=== PATIENT | female | born 1945 | race Caucasian/White ===

== ENCOUNTER → 2017-11-21 | Outpatient (CLI) | payer MEDICARE ==
--- NOTE | 2017-11-22 08:38 | RADIOLOGY REPORT (SQ) ---
EXAM DESCRIPTION: PET CT SKULL/THIGH COMPLETED DATE/TIME: 11/21/2017 8:54 pm REASON FOR STUDY: MALIGNANT NEOPLASM OF ENDOMETRIUM C54.1 MALIGNANT NEOPLASM OF ENDOMETRIUM COMPARISON: Report only, outside CT chest abdomen pelvis 10/16/2014 RADIONUCLIDE AND DOSE: 14.5 mCi F18 FDG The route of agent administration: Intravenous FASTING BLOOD SUGAR: 141 mg/dl CONTRAST TYPE AND DOSE: No CT contrast given. TECHNIQUE: Blood glucose level was verified. Above dose of FDG was injected intravenously. 2-D seg mented attenuation correction images were obtained from the base of the skull to the midthighs. Nonc ontrast CT images were obtained for attenuation correction and fusion with emission images. CT image s were performed without oral or intravenous contrast and are not sensitive for parenchymal lesions. A series of overlapping emission PET images were obtained. Images reviewed and manipulated at [facility] work station by the radiologist. Images stored on PACS. LIMITATIONS: None. FINDINGS: HEAD AND NECK: No areas of abnormal metabolic activity in the soft tissues of the head and neck. CHEST: A 1.7 x 1 cm pretracheal lymph node is present on axial image 63, with SUV of 3.1. A right paratracheal 1.7 x 1.2 cm lymph node is present on axial image 68, with SUV of 3.1. There is a benign-appearing cyst in the medial anterior right chest, just deep to the right anterior 3rd rib. This is non metabolic with SUV of less than 0.5. ABDOMEN AND PELVIS: Several hypermetabolic liver lesions are present as follows: 1.5 cm left lobe liver subdiaphragmatic surface axial image 107, SUV 5.3. 1 cm anterior left lobe liver axial image 132, SUV 4.9 2.2 x 1.5 cm right lobe liver lesion axial image 126, SUV 6.5 PROXIMAL LOWER EXTREMITIES: No areas of abnormal metabolic activity in the soft tissues of the lower extremities. BONES: No abnormal metabolic activity in the visualized skeleton. ADDITIONAL CT FINDINGS: Contracted gallbladder with tiny stones. Mild spotty coronary artery calcifi cation OTHER: Liver background activity 2.5 SUV. Blood pool background activity 1.7 SUV IMPRESSION: Metabolically active mediastinal lymph nodes worrisome for metastatic disease. Hypermetabolic liver lesions due to metastatic disease TECHNICAL DOCUMENTATION: JOB ID: [id number]- All Rights Reserved Reading location - IP/workstation name: [email or web address]
== END ==
LOC: RAD 18:11
PROVIDERS: ATTEND Internal Medicine
DX: C54.3 Malignant neoplasm of fundus uteri (principal)
CPT/HCPCS: 78815; A9552

== ENCOUNTER 2017-11-30 07:31 | Day surgery (SDC) | payer MEDICARE ==
[2017-11-29 11:17] LABS: HEMATOCRIT 38.3 % (36.0-47.0); HEMOGLOBIN 12.8 g/dL (12.0-15.5); MEAN CORPUSCULAR HEMOGLOBIN 29.4 pg (27.0-33.4); MEAN CORPUSCULAR HGB CONC 33.5 g/dL (32.0-36.0); MEAN CORPUSCULAR VOLUME 88 fl (80-97); PLATELET COUNT 330 10^3/uL (150-450); RED BLOOD COUNT 4.36 10^6/uL (3.72-5.28); RED CELL DISTRIBUTION WIDTH 13.6 % (11.5-14.0); WHITE BLOOD COUNT 10.1 10^3/uL (4.0-10.5)
[2017-11-29 11:47] LABS: ANION GAP 15 (5-19); BLOOD UREA NITROGEN 33 mg/dL (7-20); CALCIUM 10.2 mg/dL (8.4-10.2); CARBON DIOXIDE 29 mmol/L (22-30); CHLORIDE 100 mmol/L (98-107); GLUCOSE 187 mg/dL (75-110); POTASSIUM 4.6 mmol/L (3.6-5.0); SODIUM 144.3 mmol/L (137-145)
--- NOTE | 2017-11-29 12:34 | RADIOLOGY REPORT (SQ) ---
EXAM DESCRIPTION: CHEST PA/LATERAL COMPLETED DATE/TIME: 11/29/2017 11:22 am REASON FOR STUDY: PRE OP COMPARISON: None. Correlation: PET-CT 11/21/2017. EXAM PARAMETERS: NUMBER OF VIEWS: two views TECHNIQUE: Digital Frontal and Lateral radiographic views of the chest acquired. RADIATION DOSE: NA LIMITATIONS: none FINDINGS: LUNGS AND PLEURA: No opacities, masses or pneumothorax. No pleural effusion. MEDIASTINUM AND HILAR STRUCTURES: Known mediastinal adenopathy. HEART AND VASCULAR STRUCTURES: Heart normal size. No evidence for failure. BONES: No acute findings. HARDWARE: None in the chest. OTHER: No other significant finding. IMPRESSION: Known mediastinal adenopathy. No significant change. TECHNICAL DOCUMENTATION: JOB ID: [id number] [employer]- All Rights Reserved Reading location - IP/workstation name: [email or web address]
--- NOTE | 2017-11-29 13:19 | EKG REPORT ---
SEVERITY:- NORMAL ECG - SINUS RHYTHM : Confirmed by: Michael Carrizales MD 29-Nov-2017 13:17:47
[~2017-11-30 07:31] MED LIST: CEFAZOLIN 1 GM/D5W RTU 1 GM/50 ML RTUPB IV PRN; DIAZEPAM 5 MG TABLET PO PRN; LACTATED RINGERS 1000 ML IV PRN; LIDOCAINE 0.5% INJ-PF (5 MG/ML) 50 ML SDV SUBCUT PRN
[2017-11-30] MEDS ORDERED: BACITRACIN INJ 50,000 UNIT VIAL ONE (07:56)
[2017-11-30] MEDS ORDERED: LIDOCAINE 0.5% INJ-PF (5 MG/ML) 50 ML SDV ONE (07:56)
[2017-11-30] MEDS ORDERED: FENTANYL CITRATE INJ/PF 100 MCG/2 ML AMPUL ONE (08:02)
[2017-11-30] MEDS ORDERED: MIDAZOLAM 2 MG/2 ML INJ ONE (08:02)
--- NOTE | 2017-11-30 10:49 | RADIOLOGY REPORT (SQ) ---
EXAM DESCRIPTION: PORTACATH INSERTION; GUIDANCE FLUOROSCOPIC COMPLETED DATE/TIME: 11/30/2017 9:16 am REASON FOR STUDY: C54.3 MALIGNANT NEOPLASM OF FUNDUS UTERI C54.3 MALIGNANT NEOPLASM OF FUNDUS UTERI COMPARISON: Two-view chest 11/29/2017 FLUOROSCOPY TIME: 0.1 minutes 17 series of digital images saved to PACS. TECHNIQUE: Intra-operative images acquired during surgical procedure to evaluate progress. NUMBER OF IMAGES: 17 series of digital images saved to pac's LIMITATIONS: None. FINDINGS: Intra procedural imaging and fluoro during placement of a right-sided permanent central li ne with the tip in the superior vena cava. Please see the operative report for further details IMPRESSION: Intra procedural imaging and fluoro COMMENT: Quality ID [id number]: Final reports for procedures using fluoroscopy that document radiation exp osure indices, or exposure time and number of fluorographic images (if radiation exposure indices are not available) Please consult full operative report of the attending physician for description of the procedure. TECHNICAL DOCUMENTATION: JOB ID: [id number] [email or web address]- All Rights Reserved Reading location - IP/workstation name: [facility]-[email or web address]
--- NOTE | 2017-11-30 10:49 | RADIOLOGY REPORT (SQ) ---
EXAM DESCRIPTION: PORTACATH INSERTION; GUIDANCE FLUOROSCOPIC COMPLETED DATE/TIME: 11/30/2017 9:16 am REASON FOR STUDY: C54.3 MALIGNANT NEOPLASM OF FUNDUS UTERI C54.3 MALIGNANT NEOPLASM OF FUNDUS UTERI COMPARISON: Two-view chest 11/29/2017 FLUOROSCOPY TIME: 0.1 minutes 17 series of digital images saved to PACS. TECHNIQUE: Intra-operative images acquired during surgical procedure to evaluate progress. NUMBER OF IMAGES: 17 series of digital images saved to pac's LIMITATIONS: None. FINDINGS: Intra procedural imaging and fluoro during placement of a right-sided permanent central li ne with the tip in the superior vena cava. Please see the operative report for further details IMPRESSION: Intra procedural imaging and fluoro COMMENT: Quality ID [id number]: Final reports for procedures using fluoroscopy that document radiation exp osure indices, or exposure time and number of fluorographic images (if radiation exposure indices are not available) Please consult full operative report of the attending physician for description of the procedure. TECHNICAL DOCUMENTATION: JOB ID: [id number] [employer]- All Rights Reserved Reading location - IP/workstation name: [facility]-[email or web address]
[2017-11-30 11:08] VITALS: BP 122/73
--- NOTE | 2017-11-30 11:32 | Discharge Summary ---
Discharge Summary (SDC) - Discharge Final Diagnosis: Uterine cancer. Date of Surgery: 11/30/17 Discharge Date: 11/30/17 Condition: Fair Forms: Sedation D/C Instructions, Discharge POC-Surgical Service Treatment or Instructions: Return to physician as directed by MD. Discharge home [after recovery per ASU criteria]. Diet ,as tolerated, when fully awake advance as tolerated. Activities within moderation encouraged. Follow up in my office by appointment in about [1 week]. Call for appointment. Leave wounds [covered], [keep clean and dry, until office visit in 1 week]. Hold of on school/work [until evaluation in office]. Meds per med rec. Percocet prescription. May shower [in 48 hrs], [try to keep operated area as dry as possible]. Referrals: KHAI KILPATRICK MD [ACTIVE STAFF] - 12/09/17 10:45 am Discharge Diet: As Tolerated Respiratory Treatments at Home: Deep Breathing/Coughing Discharge Activity: Activity As Tolerated Home Care Assistance: None Needed Report the Following to Your Physician Immediately: Shortness of Breath, Nausea , Vomiting, Increase in Pain, Fever over 101 Degrees, Unusual Bleeding, Redness , Swelling, Warmth
--- NOTE | 2017-11-30 11:34 | Operative Report ---
Operative Report DATE OF SURGERY: 11/30/17 PREOPERATIVE DIAGNOSIS: Uterine cancer. POSTOPERATIVE DIAGNOSIS: Uterine cancer. OPERATION: 1. Ultrasound evaluation of the right internal jugular vein. 2. Port-A-Cath insertion via real-time access is right renal vein. 3. Angiogram and interpretation. SURGEON: KHAI NGUYEN WATER QUALITY MANAGER: None. ANESTHESIA: Moderate Sedation TISSUE REMOVED OR ALTERED: Not applicable., COMPLICATIONS: None. ESTIMATED BLOOD LOSS: 5 mL. INTRAOPERATIVE FINDINGS: Of a satisfactory right internal jugular vein about 1.5 cm in diameter. Satisfactory and safe axis via ultrasound guidance. Satisfactory placement of port. Angiogram demonstrated smooth flow of contrast through the right atrium and ventricle. Easy egress of blood and ingress of heparinized. PROCEDURE: After obtaining informed consent, the patient was taken to the [facility] and positioned supine. The [right] neck and chest were prepared with chlorhexidine and draped out with sterile linen. After the " universal timeout", in which it was verified that the patient continued to receive antibiotic, the procedure commenced. A steriley sheathed ultrasound probe was used to evaluate the [ right] internal jugular vein. Local anesthesia was infiltrated adjacent to the probe. Access into the [right] internal jugular vein was obtained using a micropuncture needle, followed by micropuncture wire and then a micropuncture catheter. This was followed by introduction of a 0.035 guidewire the tip of which was placed down into the inferior vena cava . The port sites was marked , locally anesthetized and incision made. Dissection now proceeded to the deep subcutaneous subcutaneous tissues so that a pocket for the port was made. Meticulous hemostasis was secured and the catheter was tunneled between the 2 incisions. Proximally, the catheter was now positioned using a peel-away sheath. Distally the catheter was tailored to an appropriate length and then mated to the port using the contained fixating device. The port was now placed in the pocket and the catheter optimally positioned. The port was accessed with a Vazquez needle and an angiogram done under digital subtraction. The findings as dictated. With adequate and satisfactory positioning, both lumens of the chamber were irrigated with heparinized solution. The wounds were now closed using interrupted 3-0 PDS to the subcutaneous tissues and a continuous subcuticular suture of 4-0 Monocryl to the skin. These are reinforced with Steri-Strips over benzoin and then dressings applied. Time: 0.1 minute. Dose: 16.44 m Gy Contrast: 7 mls. Isovue 300. Copies of the dictated operative report for Dr. Khai Amos MD.
== END 2017-11-30 11:00 | disposition home or self-care (01) ==
LOC: CCL 07:31
PROVIDERS: ATTEND Surgery
PROC: 05HM33Z Insertion of Infusion Device into Right Internal Jugular Vein, Percutaneous Approach (ICD-10-PCS; principal; 2017-11-30)
DX: C54.3 Malignant neoplasm of fundus uteri (principal); E11.9 Type 2 diabetes mellitus without complications; Z96.652 Presence of left artificial knee joint; Z85.118 Personal history of other malignant neoplasm of bronchus and lung; Z79.899 Other long term (current) drug therapy; Z79.82 Long term (current) use of aspirin; Z79.84 Long term (current) use of oral hypoglycemic drugs; Z87.891 Personal history of nicotine dependence
CPT/HCPCS: 93005; 36415; 82962; 85027; 80048; 36561; 76937; 77001; 71046; 93010; C1752; Q9967; J2250; J3490 ×2; J0690; A9270; J3010; J1644

== ENCOUNTER → 2018-02-04 | Outpatient (CLI) | payer MEDICARE ==
--- NOTE | 2018-02-04 10:35 | RADIOLOGY REPORT (SQ) ---
EXAM DESCRIPTION: CT CHEST WITH; CT ABD/PELVIS WITH IV ONLY COMPLETED DATE/TIME: 02/04/2018 9:40 am REASON FOR STUDY: MALIGNANT NEOPLASM OF FUNDUS UTERI C54.3 MALIGNANT NEOPLASM OF FUNDUS UTERI COMPARISON: PET-CT 11/21/2017 CONTRAST TYPE AND DOSE: contrast/concentration: Isovue 370.00 mg/ml; Total Contrast Delivered: 80.0 ml; Total Saline Delivered: 69.0 ml RENAL FUNCTION: Creatinine 1.09 TECHNIQUE: CT scan of the chest performed using helical scanning technique with dynamic intravenous contrast injection. Images reviewed with lung, soft tissue and bone windows. Reconstructed coronal a nd sagittal MPR images reviewed. All images stored on PACS. CT scan of the abdomen and pelvis performed with intravenous and without oral contrastusing helical s tiffanie technique with dynamic intravenous contrast injection. Images reviewed with lung, soft tissu e and bone windows. Reconstructed coronal and sagittal MPR images reviewed. Delayed images for eval uation of the urinary system also acquired and evaluated. All images stored on PACS. All CT scanners at this facility use dose modulation, iterative reconstruction, and/or weight based d osing when appropriate to reduce radiation dose to as low as reasonably achievable (ALARA). [facility]: Dose Right [facility]: CareDose [facility]: Dose Right [facility]: Teradose 4D [facility]: Smart Technologies RADIATION DOSE: CT Rad equipment meets quality standard of care and radiation dose reduction techniq ues were employed. CTDIvol: 5.7 - 7.9 mGy. DLP: 1046 mGy-cm. . LIMITATIONS: None. FINDINGS: CHEST: LUNGS AND PLEURA: Post right upper lobectomy. No acute infiltrates. No pleural effusion. No pneumo thorax. Airways are patent. HILAR AND MEDIASTINAL STRUCTURES: No abnormal lymph nodes. 1 x 0.6 cm right peritracheal lymph node is smaller than on previous studies (was 1.7 x 1 cm 11/21/2017). 1.3 x 0.5 cm pretracheal lymph node is present (was 1.7 x 1.2 cm on 11/21/2017). There is a 5 x 4 cm mediastinal cyst unchanged from 11/21. This was non metabolic on PET-CT 11/21/2017. HEART AND VASCULAR STRUCTURES: No aneurysm or dissection. No central pulmonary emboli. No pericardi al effusion. Coronary artery calcifications and coronary artery stents are present. HARDWARE: None. THYROID AND OTHER SOFT TISSUES: No masses. No adenopathy. BONES: No significant finding. OTHER: No other significant finding. ABDOMEN AND PELVIS: LIVER: The anterior left lobe liver lesions seen on PET-CT 11/21/2017 is no longer identified. There is a 7 mm scar in the anterior left lobe liver axial image 18 (1.2 cm hypermetabolic nodule was present on 11/21/2017 in this location). 2.1 x 1.5 cm inferior right lobe liver lesion is present (was 2.3 x 1.5 cm PET-CT 11/21/2017). SPLEEN: Normal size. No focal lesions. PANCREAS: No masses. No significant calcifications. No adjacent inflammation or peripancreatic fluid collections. Pancreatic duct not dilated. GALLBLADDER: Small stones in a contracted gallbladder. No pericholecystic fluid ADRENAL GLANDS: No significant masses or asymmetry. RIGHT KIDNEY AND URETER: No solid masses. No significant calcification. No hydronephrosis or hydroure ter. LEFT KIDNEY AND URETER: No solid masses. No significant calcification. No hydronephrosis or hydrouret er. AORTA AND VESSELS: No aneurysm. No dissection. Renal arteries, SMA, celiac without stenosis. RETROPERITONEUM: No retroperitoneal adenopathy, hemorrhage or masses. BOWEL AND PERITONEAL CAVITY: No oral contrast. No evidence of bowel obstruction or free intraperiton eal air or fluid. APPENDIX: Normal. ABDOMINAL WALL: No masses. No hernias. PELVIS: No mass or free fluid. Normal bladder. Post hysterectomy BONES: No significant or acute findings. OTHER: No other significant finding. IMPRESSION: NORMAL CT OF THE CHEST WITH IV CONTRAST. NORMAL CT OF THE ABDOMEN AND PELVIS WITH ORAL AND INTRAVENOUS CONTRAST. COMMENT: Post right upper lobectomy. No CT findings for local recurrence of right upper lobe tumor . 5 x 4 cm benign-appearing anterior mediastinal cyst unchanged. Decrease in size of liver lesions compared to PET-CT 11/21/2017 Contracted gallbladder with tiny stones TECHNICAL DOCUMENTATION: JOB ID: [id number] Quality ID # [id number]: Final reports with documentation of one or more dose reduction techniques (e.g., Au tomated exposure control, adjustment of the mA and/or kV according to patient size, use of iterative reconstruction technique) 2010 [employer]- All Rights Reserved Reading location - IP/workstation name: [facility]
== END ==
LOC: RAD 08:45
PROVIDERS: ATTEND Physician Assistant Medical
DX: C54.3 Malignant neoplasm of fundus uteri (principal); I25.10 Atherosclerotic heart disease of native coronary artery without angina pectoris
CPT/HCPCS: 71260; 74177

== ENCOUNTER 2018-02-05 13:46 | Emergency (ER) | payer MEDICARE ==
[2018-02-05] MEDS ORDERED: NORMAL SALINE 1000 ML 1,000 ML IV ONE (14:09)
--- NOTE | 2018-02-05 14:09 | ER Document Report ---
ED Medical Screen (RME) - General Chief Complaint: Abdominal Pain Stated Complaint: ABDOMINAL PAIN, BACK PAIN Time Seen by Provider: 02/05/18 14:03 Notes: 72 year old female that presents to the emergency department today with complaints of constipation. Patient is on narcotic pain medication secondary to stage IV endometrial cancer. Patient states she has not had a bowel movement in 2 weeks. Review of patient's outpatient abdominal CT that was done here yesterday shows a large stool burden in the rectal vault. I have greeted and performed a rapid initial assessment of this patient. A comprehensive ED assessment and evaluation of the patient, analysis of test results, and completion of the medical decision making process will be conducted by additional ED providers. Review of systems: Positive for rectal pain and constipation. Physical Exam: General: Alert, appears chronically ill. HEENT: Normocephalic. Atraumatic. PERRLA. Extraocular movements intact. Oropharynx clear. Neck: Supple. Respiratory: No respiratory distress. Abdominal: Minimal tenderness. No distension. Extremities: Moves all four extremities. Neurological: Normal cognition. AAOx4. Normal speech. Psychological: Normal affect. Normal Mood. Skin: Warm. Dry. Normal color. TRAVEL OUTSIDE OF THE [place] IN LAST 30 DAYS: No - Related Data Allergies/Adverse Reactions: No Known Allergies Allergy (Verified 02/05/18 14:07) Past Medical History - Social History Chew tobacco use (# tins/day): Yes Frequency of alcohol use: None Drug Abuse: None - Past Medical History Cardiac Medical History: Reports: Hx Hypertension Denies: Hx Coronary Artery Disease, Hx Heart Attack Pulmonary Medical History: Denies: Hx Asthma, Hx Bronchitis, Hx COPD, Hx Pneumonia Neurological Medical History: Denies: Hx Cerebrovascular Accident, Hx Seizures Renal/ Medical History: Denies: Hx Peritoneal Dialysis Musculoskeltal Medical History: Reports Hx Arthritis - right knee Past Surgical History: Reports: Hx Hysterectomy - Immunizations Hx Diphtheria, Pertussis, Tetanus Vaccination: No History of Influenza Vaccine for 05/2017 - 10/2017 Season: Yes Influenza Administration Date for 05/2017 - 10/2017 Season: 05/09/17 Physical Exam - Vital signs Vitals: Temp Pulse Resp BP Pulse Ox 97.9 F 101 H 24 H 109/63 100 02/05/18 13:56 02/05/18 13:56 02/05/18 13:56 02/05/18 13:56 02/05/18 13:56 Course - Vital Signs Vital signs: Temp Pulse Resp BP Pulse Ox 97.9 F 101 H 24 H 109/63 100 02/05/18 13:56 02/05/18 13:56 02/05/18 13:56 02/05/18 13:56 02/05/18 13:56 Doctor's Discharge - Discharge Referrals: HONEY WILLIAMSON, PAWilfredoC [Primary Care Provider] - Follow up as needed
--- NOTE | 2018-02-05 14:38 | ER Document Report ---
ED General - General Chief Complaint: Abdominal Pain Stated Complaint: ABDOMINAL PAIN, BACK PAIN Time Seen by Provider: 02/05/18 14:03 Mode of Arrival: Ambulatory Information source: Patient Notes: 72-year-old female presents emergency department with complaints of constipation that started 2 days ago. Patient states that she has stage IV endometrial cancer. She is currently on narcotic pain medication. Patient states that she has not had any narcotic pain medication in the last 2 weeks. She states that she only takes a narcotic pain medication after she finishes with her chemotherapy. Her next dose of chemotherapy is next week. Patient contacted her oncologist yesterday. She states that she had a CT of the chest, abdomen, pelvis ordered. I reviewed the CT. No fecal impaction noted. Patient says she has a lot of pressure to her buttock. Patient denies abdominal pain, nausea, vomiting, dysuria, hematuria, melena, hematochezia. TRAVEL OUTSIDE OF THE [place] IN LAST 30 DAYS: No - HPI Onset: Last week Onset/Duration: Sudden Quality of pain: Achy, Fullness, Pressure Severity: Moderate Associated symptoms: None Exacerbated by: Denies Relieved by: Denies Similar symptoms previously: No Recently seen / treated by doctor: No - Related Data Allergies/Adverse Reactions: No Known Allergies Allergy (Verified 02/05/18 14:07) Past Medical History - General Information source: Patient - Social History Smoking Status: Never Smoker Chew tobacco use (# tins/day): Yes Frequency of alcohol use: None Drug Abuse: None Family History: Reviewed & Not Pertinent Patient has suicidal ideation: No Patient has homicidal ideation: No - Past Medical History Cardiac Medical History: Reports: Hx Hypertension Denies: Hx Coronary Artery Disease, Hx Heart Attack Pulmonary Medical History: Denies: Hx Asthma, Hx Bronchitis, Hx COPD, Hx Pneumonia Neurological Medical History: Denies: Hx Cerebrovascular Accident, Hx Seizures Renal/ Medical History: Denies: Hx Peritoneal Dialysis Musculoskeltal Medical History: Reports Hx Arthritis - right knee Past Surgical History: Reports: Hx Hysterectomy - Immunizations Hx Diphtheria, Pertussis, Tetanus Vaccination: No Hx Pneumococcal Vaccination: 08/09/14 Review of Systems - Review of Systems Constitutional: No symptoms reported EENT: No symptoms reported Cardiovascular: No symptoms reported Respiratory: No symptoms reported Gastrointestinal: Constipation Genitourinary: No symptoms reported Female Genitourinary: No symptoms reported Musculoskeletal: No symptoms reported Skin: No symptoms reported Neurological/Psychological: No symptoms reported -: Yes All other systems reviewed and negative Physical Exam - Vital signs Vitals: Temp Pulse Resp BP Pulse Ox 97.9 F 101 H 24 H 109/63 100 02/05/18 13:56 02/05/18 13:56 02/05/18 13:56 02/05/18 13:56 02/05/18 13:56 Interpretation: Tachycardic - Notes Notes: PHYSICAL EXAMINATION: GENERAL: Well-appearing, well-nourished and in no acute distress. HEAD: Atraumatic, normocephalic. EYES: Pupils equal round and reactive to light, extraocular movements intact, conjunctiva are normal. ENT: Nares patent, oropharynx clear without exudates. Moist mucous membranes. NECK: Normal range of motion, supple without lymphadenopathy LUNGS: Breath sounds clear to auscultation bilaterally and equal. No wheezes rales or rhonchi. HEART: Regular rate and rhythm without murmurs ABDOMEN: Soft, nontender, nondistended abdomen. No guarding, no rebound. No masses appreciated. Female : deferred Musculoskeletal: Normal range of motion, no pitting or edema. No cyanosis. NEUROLOGICAL: Cranial nerves grossly intact. Normal speech, normal gait. Normal sensory, motor exams PSYCH: Normal mood, normal affect. SKIN: Warm, Dry, normal turgor, no rashes or lesions noted. Course - Re-evaluation Re-evalutation: 02/05/18 19:38 No free air or signs of obstruction on XR. Patient given a soap suds enema without relief. Patient was then manually disimpacted. Moderate stool removed. I will discharge the patient home. Patient instructed to take over the counter medications as needed for constipation, to follow up with her PCP as directed, and to return for worsening symptoms. Patient is agreeable with the plan of care. - Vital Signs Vital signs: Temp Pulse Resp BP Pulse Ox 97.9 F 101 H 15 143/76 H 100 02/05/18 13:56 02/05/18 13:56 02/05/18 15:01 02/05/18 15:01 02/05/18 15:01 - Laboratory Result Diagrams: 02/05/18 14:50 02/05/18 14:50 Laboratory results interpreted by me: 02/05/18 02/05/18 02/05/18 14:50 14:50 17:37 RBC 3.38 L Hgb 10.5 L Hct 30.1 L RDW 16.0 H BUN 24 H Creatinine 1.29 H Est GFR ( Amer) 49 L Est GFR (Non-Af Amer) 41 L Glucose 241 H Total Protein 6.2 L Urine Glucose (UA) >=500 H Discharge - Discharge Clinical Impression: Constipation Qualifiers: Constipation type: unspecified constipation type Qualified Code(s): K59.00 - Constipation, unspecified Condition: Good Disposition: HOME, SELF-CARE Instructions: Constipation ([facility]) Referrals: HONEY WILLIAMSON PA-C [Primary Care Provider] - Follow up as needed
[2018-02-05 15:09] LABS: ABSOLUTE LYMPHOCYTES (AUTO) 1.6 10^3/uL (0.5-4.7); ABSOLUTE MONOCYTES (AUTO) 0.9 10^3/uL (0.1-1.4); ABSOLUTE NEUT (AUTO) 7.5 10^3/uL (1.7-8.2); BASOPHILS % (AUTO) 0.3 % (0-2); EOSINOPHILS % (AUTO) 0.2 % (0-6); HEMATOCRIT 30.1 % (36.0-47.0); HEMOGLOBIN 10.5 g/dL (12.0-15.5); LYMPHOCYTES % (AUTO) 16.4 % (13-45); MEAN CORPUSCULAR HEMOGLOBIN 31.2 pg (27.0-33.4); MEAN CORPUSCULAR VOLUME 89 fl (80-97); PLATELET COUNT 273 10^3/uL (150-450); RED BLOOD COUNT 3.38 10^6/uL (3.72-5.28); SEGMENTED NEUTROPHILS % (AUTO) 74.1 % (42-78); TOTAL CELLS COUNTED % (AUTO) 100 %; WHITE BLOOD COUNT 10.1 10^3/uL (4.0-10.5)
[2018-02-05 15:25] LABS: ALANINE AMINOTRANSFERASE 22 U/L (9-52); ALBUMIN 3.6 g/dL (3.5-5.0); ALKALINE PHOSPHATASE 74 U/L (38-126); ANION GAP 13 (5-19); ASPARTATE AMINO TRANSFERASE 16 U/L (14-36); BILIRUBIN,DIRECT 0.4 mg/dL (0.0-0.4); BILIRUBIN,TOTAL 0.7 mg/dL (0.2-1.3); BLOOD UREA NITROGEN 24 mg/dL (7-20); CALCIUM 9.8 mg/dL (8.4-10.2); CARBON DIOXIDE 26 mmol/L (22-30); CHLORIDE 103 mmol/L (98-107); GLUCOSE 241 mg/dL (75-110); POTASSIUM 4.1 mmol/L (3.6-5.0); SODIUM 141.6 mmol/L (137-145); TOTAL PROTEIN 6.2 g/dL (6.3-8.2)
--- NOTE | 2018-02-05 15:48 | RADIOLOGY REPORT (SQ) ---
EXAM DESCRIPTION: ACUTE ABDOMEN SERIES COMPLETED DATE/TIME: 02/05/2018 3:36 pm REASON FOR STUDY: abdominal pain COMPARISON: 11/21/2017 patent NUMBER OF VIEWS: Three views. TECHNIQUE: Frontal chest, supine abdomen and upright/decubitus abdomen radiographic images acquired. LIMITATIONS: None. FINDINGS: CHEST: Right hilar prominence. Venous access catheter tip at the cavoatrial junction. FREE AIR: None. No abnormal gas collections. BOWEL GAS PATTERN: Few scattered small bowel loops without air-fluid levels. CALCIFICATIONS: No suspicious calcifications. HARDWARE: None in the abdomen. SOFT TISSUES: Contrast in the bladder. BONES: No acute fracture. No worrisome bone lesions. OTHER: No other significant finding. IMPRESSION: No evidence for bowel obstruction. Right hilar prominence. TECHNICAL DOCUMENTATION: JOB ID: [id number] [employer]- All Rights Reserved Reading location - IP/workstation name: [email or web address]
[2018-02-05] MEDS ORDERED: LORAZEPAM INJ 2 MG/1 ML VIAL IV ONE (17:06)
[2018-02-05] MEDS ORDERED: LORAZEPAM INJ 2 MG/1 ML VIAL ONE (17:08)
[2018-02-05 17:58] LABS: APPEARANCE,URINE CLEAR; BILIRUBIN,URINE NEGATIVE (NEGATIVE); COLOR,URINE YELLOW; GLUCOSE, URINE >=500 mg/dL (NEGATIVE); KETONES,URINE NEGATIVE (NEGATIVE); LEUKOCYTE ESTERASE,URINE NEGATIVE (NEGATIVE); NITRITE,URINE NEGATIVE (NEGATIVE); PROTEIN,URINE NEGATIVE (NEGATIVE); URINE SPECIFIC GRAVITY 1.022; UROBILINOGEN,URINE NEGATIVE mg/dL (<2.0)
[2018-02-05 20:07] VITALS: BP 138/67
[2018-02-05] MEDS ORDERED: NORMAL SALINE 10 ML SDV (SCHEDULED) IV ONE (20:45)
== END 2018-02-05 20:51 | disposition home or self-care (01) ==
LOC: ER 13:46
DX: K59.00 Constipation, unspecified (principal); C54.1 Malignant neoplasm of endometrium; Z79.899 Other long term (current) drug therapy; I10 Essential (primary) hypertension; Z72.0 Tobacco use; R00.0 Tachycardia, unspecified
CPT/HCPCS: 99284; 96361; 96374; 36415; 85025; 80053; 81001; 74022; J2060; J7030

== ENCOUNTER 2018-02-25 14:21 | Inpatient (IN) | payer MEDICARE ==
[2018-02-25] MEDS ORDERED: PIPERACILLIN/TAZOBACTAM 4.5 GM VIAL IV ONE (14:37)
[2018-02-25] MEDS ORDERED: RINGERS SOLUTION,LACTATED 1,000 ML IV ONE (14:38)
--- NOTE | 2018-02-25 14:44 | ER Document Report ---
ED General - General Stated Complaint: WEAKNESS Time Seen by Provider: 02/25/18 14:30 TRAVEL OUTSIDE OF THE [place] IN LAST 30 DAYS: No - HPI Notes: 72-year-old female with uterine cancer currently receiving chemotherapy, presents with generalized weakness and diarrhea for the past 2 days. Unable to report how many episodes of diarrhea daily. No blood. Denies history of C. difficile. Denies recent antibiotics. Last chemotherapy 5 days ago. Had appointment with primary care doctor today for IV fluids, but was too weak to get out of the car. Denies fevers or chills. Denies pain with urination. Has nausea without vomiting. No abdominal pain. Denies recent changes in medications. EMS found patient to have blood pressure of 70/40 and heart rate of 100. Blood pressure improved to 121/77 with fluids. - Related Data Allergies/Adverse Reactions: No Known Allergies Allergy (Verified 02/25/18 18:59) Past Medical History - Social History Smoking Status: Unknown if Ever Smoked Family History: Reviewed & Not Pertinent - Past Medical History Cardiac Medical History: Reports: Hx Hypertension Denies: Hx Coronary Artery Disease, Hx Heart Attack Pulmonary Medical History: Denies: Hx Asthma, Hx Bronchitis, Hx COPD, Hx Pneumonia Neurological Medical History: Denies: Hx Cerebrovascular Accident, Hx Seizures Endocrine Medical History: Reports: Hx Diabetes Mellitus Type 2 Renal/ Medical History: Denies: Hx Peritoneal Dialysis Malignancy Medical History: Reports: Other - uterine cancer Musculoskeletal Medical History: Reports Hx Arthritis - right knee Past Surgical History: Reports: Hx Hysterectomy - Immunizations Hx Diphtheria, Pertussis, Tetanus Vaccination: No Hx Pneumococcal Vaccination: 08/09/14 Review of Systems - Review of Systems Notes: REVIEW OF SYSTEMS: CONSTITUTIONAL: -fevers, -chills, +fatigue EENT: -eye pain, -difficulty swallowing, -nasal congestion CARDIOVASCULAR: -chest pain, -syncope. RESPIRATORY: -cough, -SOB GASTROINTESTINAL: -abdominal pain, +nausea, -vomiting, +diarrhea GENITOURINARY: -dysuria, -hematuria MUSCULOSKELETAL: -back pain, -neck pain SKIN: -rash or skin lesions. HEMATOLOGIC: -easy bruising or bleeding. LYMPHATIC: -swollen, enlarged glands. NEUROLOGICAL: -altered mental status or loss of consciousness, -headache, - neurologic symptoms PSYCHIATRIC: -anxiety, -depression. Physical Exam - Vital signs Vitals: Resp 16 02/25/18 14:32 Interpretation: Hypotensive, Tachycardic - Notes Notes: PHYSICAL EXAMINATION: GENERAL: Ill-appearing, well-nourished and in no acute distress. HEAD: Atraumatic, normocephalic. EYES: Pupils equal round and reactive to light, extraocular movements intact, conjunctiva are normal. ENT: nares patent, oropharynx clear without exudates. Dry mucous membranes. NECK: Normal range of motion, supple without lymphadenopathy LUNGS: Breath sounds clear to auscultation bilaterally and equal. No wheezes rales or rhonchi. HEART: Regular rate and rhythm, no chest wall tenderness ABDOMEN: Soft, nontender, normoactive bowel sounds. No guarding, no rebound. No masses appreciated. EXTREMITIES: Normal range of motion, no pitting or edema. No cyanosis. NEUROLOGICAL: Cranial nerves grossly intact. Normal speech, normal gait. Normal sensory and motor exams. PSYCH: Normal mood, normal affect. SKIN: Warm, Dry, normal turgor, no rashes or lesions noted, pale. Course - Re-evaluation Re-evalutation: 02/25/18 14:44 Initially hypotensive and tachycardic. Sepsis suspected. No fever. C. difficile and stool cultures ordered. Fluids and antibiotics initiated. 02/25/18 20:11 Blood pressure had stabilized around 90s-100 systolic, then dropped into the 70s. Patient states "it is always like that." Second liter of fluids ordered. No current sign of infection. Unable to obtain stool sample. Discussed with hospitalist for admission. - Vital Signs Vital signs: Temp Pulse Resp BP Pulse Ox 98.3 F 16 79/46 L 97 02/25/18 19:49 02/25/18 19:47 02/25/18 19:47 02/25/18 19:47 - Laboratory Result Diagrams: 02/25/18 14:35 02/25/18 14:35 Laboratory results interpreted by me: 02/25/18 02/25/18 02/25/18 14:35 14:35 14:35 RBC 3.42 L Hgb 10.7 L Hct 31.6 L RDW 18.3 H Seg Neutrophils % 88.9 H Lymphocytes % 9.1 L Monocytes % 1.6 L VBG pCO2 33.4 L VBG HCO3 19.7 L Sodium 136.1 L Chloride 94 L BUN 36 H Est GFR (Non-Af Amer) 57 L Glucose 403 H* POC Glucose Calcium 10.5 H Total Protein 6.2 L Urine Glucose (UA) Urine Ketones 02/25/18 02/25/18 02/25/18 18:40 18:58 19:46 RBC Hgb Hct RDW Seg Neutrophils % Lymphocytes % Monocytes % VBG pCO2 VBG HCO3 Sodium Chloride BUN Est GFR (Non-Af Amer) Glucose POC Glucose 319 H 195 H Calcium Total Protein Urine Glucose (UA) >=500 H Urine Ketones 20 H Critical Care Note - Critical Care Note Total time excluding time spent on procedures (mins): 30 - Critical care time spent obtaining history from patient or surrogate, discussions with consultants , development of treatment plan with patient or surrogate, evaluation of patient 's response to treatment, examination of patient, ordering and performing treatments and interventions, ordering and review of laboratory studies, re- evaluation of patient's condition, ordering and review of radiographic studies and review of old charts Discharge - Discharge Clinical Impression: Hypotension Qualifiers: Hypotension type: unspecified hypotension type Qualified Code(s): I95.9 - Hypotension, unspecified Diarrhea Qualifiers: Diarrhea type: unspecified type Qualified Code(s): R19.7 - Diarrhea, unspecified Condition: Fair Disposition: ADMITTED INPATIENT Admitting Provider: Hospitalist Unit Admitted: ICU Referrals: HONEY WILLIAMSON PA-C [Primary Care Provider] - Follow up as needed
[2018-02-25 14:48] LABS: VENOUS BLOOD BASE EXCESS -4.5 mmol/L; VENOUS BLOOD HCO3 19.7 mmol/L (20-32); VENOUS BLOOD PCO2 33.4 mmHg (35-63); VENOUS BLOOD PH 7.39 (7.30-7.42)
[2018-02-25 14:51] LABS: ABSOLUTE LYMPHOCYTES (AUTO) 0.7 10^3/uL (0.5-4.7); ABSOLUTE MONOCYTES (AUTO) 0.1 10^3/uL (0.1-1.4); ABSOLUTE NEUT (AUTO) 6.8 10^3/uL (1.7-8.2); BASOPHILS % (AUTO) 0.3 % (0-2); EOSINOPHILS % (AUTO) 0.1 % (0-6); HEMATOCRIT 31.6 % (36.0-47.0); HEMOGLOBIN 10.7 g/dL (12.0-15.5); LYMPHOCYTES % (AUTO) 9.1 % (13-45); MEAN CORPUSCULAR HEMOGLOBIN 31.3 pg (27.0-33.4); MEAN CORPUSCULAR HGB CONC 33.8 g/dL (32.0-36.0); MEAN CORPUSCULAR VOLUME 92 fl (80-97); MONOCYTES % (AUTO) 1.6 % (3-13); PLATELET COUNT 299 10^3/uL (150-450); RED BLOOD COUNT 3.42 10^6/uL (3.72-5.28); RED CELL DISTRIBUTION WIDTH 18.3 % (11.5-14.0); SEGMENTED NEUTROPHILS % (AUTO) 88.9 % (42-78); TOTAL CELLS COUNTED % (AUTO) 100 %; WHITE BLOOD COUNT 7.7 10^3/uL (4.0-10.5)
[2018-02-25 14:56] LABS: INTERNATIONAL RATION (INR) 0.99; PROTHROMBIN TIME 13.6 SEC (11.4-15.4)
[2018-02-25 15:08] LABS: ALANINE AMINOTRANSFERASE 27 U/L (9-52); ALBUMIN 3.7 g/dL (3.5-5.0); ALKALINE PHOSPHATASE 83 U/L (38-126); ANION GAP 16 (5-19); ASPARTATE AMINO TRANSFERASE 18 U/L (14-36); BILIRUBIN,DIRECT 0.3 mg/dL (0.0-0.4); BILIRUBIN,TOTAL 1.2 mg/dL (0.2-1.3); BLOOD UREA NITROGEN 36 mg/dL (7-20); CALCIUM 10.5 mg/dL (8.4-10.2); CARBON DIOXIDE 26 mmol/L (22-30); CHLORIDE 94 mmol/L (98-107); POTASSIUM 4.8 mmol/L (3.6-5.0); SODIUM 136.1 mmol/L (137-145); TOTAL PROTEIN 6.2 g/dL (6.3-8.2)
[2018-02-25 15:16] LABS: GLUCOSE 403 mg/dL (75-110)
--- NOTE | 2018-02-25 15:44 | RADIOLOGY REPORT (SQ) ---
EXAM DESCRIPTION: CHEST SINGLE VIEW COMPLETED DATE/TIME: 02/25/2018 3:03 pm REASON FOR STUDY: sepsis COMPARISON: CT chest/abdomen/ pelvis 02/04/2018. Chest x-ray 11/29/2017 02/05/2018. EXAM PARAMETERS: NUMBER OF VIEWS: One view. TECHNIQUE: Single frontal radiographic view of the chest acquired. RADIATION DOSE: NA LIMITATIONS: None. FINDINGS: LUNGS AND PLEURA: Postsurgical changes with volume loss at the right lung. No consolidati on, pleural effusion or pneumothorax. MEDIASTINUM AND HILAR STRUCTURES: Stable appearance with postsurgical changes at the right perihilar region. HEART AND VASCULAR STRUCTURES: Heart normal in size. Normal vasculature. BONES: No acute findings. HARDWARE: Right-sided Port-A-Cath with the tip overlying the region of the SVC IMPRESSION: NO ACUTE RADIOGRAPHIC FINDING IN THE CHEST. TECHNICAL DOCUMENTATION: JOB ID: [id number] 2010 [employer]- All Rights Reserved Reading location - IP/workstation name: [email or web address]
[2018-02-25] MEDS ORDERED: INSULIN REG, HUMAN 100 UNIT/ML 3 ML VIAL (PYX) IV ONE (17:02)
[2018-02-25 19:25] LABS: APPEARANCE,URINE SLIGHTLY-CLOUDY; BILIRUBIN,URINE NEGATIVE (NEGATIVE); COLOR,URINE YELLOW; GLUCOSE, URINE >=500 mg/dL (NEGATIVE); KETONES,URINE 20 mg/dL (NEGATIVE); LEUKOCYTE ESTERASE,URINE NEGATIVE (NEGATIVE); NITRITE,URINE NEGATIVE (NEGATIVE); PROTEIN,URINE NEGATIVE (NEGATIVE); URINE SPECIFIC GRAVITY 1.024; UROBILINOGEN,URINE NEGATIVE mg/dL (<2.0)
[2018-02-25] MEDS ORDERED: ACETAMINOPHEN 325 MG TABLET PO PRN (21:04)
[2018-02-25] MEDS ORDERED: ONDANSETRON HCL INJ/PF 4 MG/2 ML SDV IV PRN (21:04)
[2018-02-25] MEDS ORDERED: MAG HYDROX/AL HYDROX/SIMETH SUSP 30 ML UDCUP PO PRN (21:04)
[2018-02-25] MEDS ORDERED: DEXTROSE 40% GEL 15 GM TUBE PO PRN ×2 (21:07)
[2018-02-25] MEDS ORDERED: DEXTROSE 50%-WATER 25 GM/50 ML DISP.SYRIN IV PRN (21:07)
[2018-02-25] MEDS ORDERED: GLUCAGON,HUMAN RECOMB 1 MG INJ IM PRN (21:07)
[2018-02-25] MEDS ORDERED: DEXTROSE 5%-WATER 250 ML with NOREPINEPHRINE BITARTRATE 4 MG IV PRN ×2 (21:10)
[2018-02-25] MEDS ORDERED: PIPERACILLIN/TAZOBACTAM 3.375 GM VIAL IV SCH (21:15)
--- NOTE | 2018-02-25 22:01 | EKG REPORT ---
SEVERITY:- BORDERLINE ECG - SINUS RHYTHM PROBABLE LEFT ATRIAL ABNORMALITY : Confirmed by: Patrick Oliveira 25-Feb-2018 22:01:09
[2018-02-25 22:02] LABS: CREATINE KINASE MB 0.91 ng/mL (<4.55)
[2018-02-25 22:04] LABS: TROPONIN I < 0.012 ng/mL
[2018-02-25] MEDS: GABAPENTIN 300 MG CAPSULE PO SCH (22:15)
[2018-02-25] MEDS: ATORVASTATIN CALCIUM 40 MG TABLET PO SCH (22:15)
[2018-02-25] MEDS: NORMAL SALINE 1000 ML 1,000 ML IV PRN (22:20)
[2018-02-25] MEDS: METRONIDAZOLE 500 MG/NS RTU 500 MG/100 ML RTUPB IV SCH (22:20)
--- NOTE | 2018-02-25 23:20 | PDOC H&P ---
History of Present Illness Admission Date/PCP: 02/25/18 20:39 HONEY DAMON PA-C Patient complains of: No energy to get up and walk, intractable diarrhea History of Present Illness: KATHY NOBLES is a 72 year old female with history of multiple medical problems that would be mentioned below presented to emergency medical settlement intractable diarrhea with associated generalized weakness. She stated that she had no energy to get up and walk. She described her stool is loose. No nausea or vomiting. No melena or bright red bleeding per rectum. No fever or chills. No chest pain or dyspnea palpitations cough or wheezing. No headache but she has been having dizziness. When she came to the ER her EKG showed normal sinus rhythm with a rate of 88. Initial patient's blood pressure was 114/82 and later on dropped to 85/52 and 79/46. Blood pressure initially improved to 104/63 with hydration and later on was 97/57. Labs revealed mild hyponatremia and hypochloremia with azotemia of 36 and hyperglycemia 403. Lactic acid was 1.9 and calcium 10.5 with total protein 6.2. Urinalysis showed more than 500 protein in 20 ketones with 5 WBCs and 4 hyaline casts.. Chest x- ray showed no acute cardiopulmonary disease. She was given 6 units of IV insulin as well as a liter bolus of lactated Ringer and IV Zosyn. She will be admitted to an ICU bed for further evaluation and management. Past Medical History Cardiac Medical History: Reports: Hypertension Denies: Coronary Artery Disease, Myocardial Infarction Pulmonary Medical History: Denies: Asthma, Bronchitis, Pneumonia Neurological Medical History: Denies: Seizures Endocrine Medical History: Reports: Diabetes Mellitus Type 2 Malignancy Medical History: Reports: Other - uterine cancer Musculoskeltal Medical History: Reports: Arthritis - right knee Hematology: Denies: Anemia Past Surgical History Past Surgical History: Reports: Hysterectomy Social History Smoking Status: Former Smoker - She quit smoking cigarettes about a couple weeks ago Frequency of Alcohol Use: None Drugs: Marijuana Family History Family History: DM - Both parents Parental Family History Reviewed: Yes Children Family History Reviewed: Yes Sibling(s) Family History Reviewed.: Yes Medication/Allergy Home Medications: Atorvastatin Calcium 40 mg PO QHS 11/29/17 Cyanocobalamin (Vitamin B-12) [Vitamin B-12] 1 tab PO DAILY 11/29/17 Insulin Detemir [Levemir Flextouch] 65 units SQ BID 11/29/17 Pioglitazone HCl [Actos] 30 mg PO DAILY 11/29/17 Gabapentin [Neurontin 300 mg Capsule] 300 mg PO Q8 02/25/18 Sitagliptin Phos/Metformin HCl [Janumet Xr 50-1,000 mg Tablet] 1 each PO WSUPPER 02/25/18 Allergies/Adverse Reactions: No Known Allergies Allergy (Verified 02/25/18 18:59) Review of Systems Review of Systems: As per history of present illness. All pertinent systems were reviewed above. Constitutional, HEENT, cardiovascular, respiratory, GI, , musculoskeletal, neuro, psychiatric, endocrine, integumentary and hematologic systems were reviewed and are otherwise negative/unremarkable except for positive findings mentioned above in the HPI. Physical Exam Vital Signs: Temp Pulse Resp BP Pulse Ox 98.3 F 22 H 104/63 89 L 02/25/18 19:49 02/25/18 21:31 02/25/18 21:31 02/25/18 21:31 Exam: Generally: Pleasant middle-aged female in no acute distress. Vital signs-as listed Head - atraumatic, normocephalic. 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 Extraocular movements are intact. No scleral icterus. Oropharynx -dry mucous membranes and tongue. No pharyngeal erythema or exudate. Neck - supple. No JVD. Carotid pulses 2+ bilaterally. No carotid bruits. No palpable thyromegaly or lymphadenopathy. Cardiovascular - regular rate and rhythm. Normal S1 and S2. No murmurs, gallops or rubs. Lungs - clear to auscultation bilaterally. Abdomen - soft and nontender. Positive bowel sounds. No palpable organomegaly or masses. Extremities - no pitting edema, clubbing or cyanosis. Neuro - grossly non-focal. Skin - no rashes. Breast, pelvic and rectal - deferred Results Impressions: Chest X-Ray 02/25/18 14:37 IMPRESSION: NO ACUTE RADIOGRAPHIC FINDING IN THE CHEST. Assessment & Plan - Diagnosis (1) Hypotension Qualifiers: Hypotension type: unspecified hypotension type Qualified Code(s): I95.9 - Hypotension, unspecified Is this a current diagnosis for this admission?: Yes Plan: She could be having early hypovolemic shock from her intractable diarrhea. She will be admitted to the ICU bed. Will give her further hydration with IV normal saline. Should she continue to be hypotensive we will start her on IV levophed. Stool cultures will be obtained as well as blood cultures. Follow lactic acid. (2) Diarrhea Qualifiers: Diarrhea type: unspecified type Qualified Code(s): R19.7 - Diarrhea, unspecified Is this a current diagnosis for this admission?: Yes Plan: We will place on hydration of normal saline. Will obtain stool studies. We will continue empiric IV Zosyn and add Flagyl (3) Type 2 diabetes mellitus Qualifiers: Diabetes mellitus fdc insulin use: unspecified fdc insulin use status Diabetes mellitus complication status: without complication Qualified Code(s): E11.9 - Type 2 diabetes mellitus without complications Is this a current diagnosis for this admission?: Yes Plan: The patient will be placed on supplemental coverage with NovoLog and continued on her basal coverage. She was initially hyperglycemic and after 6 units of IV insulin showed remarkable improvement. Will hold Janumet and Actos (4) Uterine cancer Is this a current diagnosis for this admission?: Yes Plan: She is undergoing active chemotherapy and last session was Wednesday. She has mild leukopenia (5) History of hypertension Is this a current diagnosis for this admission?: Yes Plan: She has been on the hypotensive side here. Her hypertension is apparently diet managed. (6) DVT prophylaxis Is this a current diagnosis for this admission?: Yes Plan: Subcutaneous Lovenox - Plan Summary Plan Summary: The plan of care was discussed in details with the patient. I answered all questions. The patient agreed to proceed with the above-mentioned plan. The patient is presumably full code. This note was created by [employer] software and may contain typo errors that may have not been proofread.
[2018-02-26 03:57] LABS: ABSOLUTE LYMPHOCYTES (AUTO) 1.2 10^3/uL (0.5-4.7); ABSOLUTE MONOCYTES (AUTO) 0.2 10^3/uL (0.1-1.4); ABSOLUTE NEUT (AUTO) 3.9 10^3/uL (1.7-8.2); BASOPHILS % (AUTO) 0.6 % (0-2); EOSINOPHILS % (AUTO) 0.6 % (0-6); HEMATOCRIT 27.6 % (36.0-47.0); HEMOGLOBIN 9.7 g/dL (12.0-15.5); LYMPHOCYTES % (AUTO) 21.8 % (13-45); MEAN CORPUSCULAR HEMOGLOBIN 32.5 pg (27.0-33.4); MEAN CORPUSCULAR HGB CONC 35.2 g/dL (32.0-36.0); MEAN CORPUSCULAR VOLUME 92 fl (80-97); MONOCYTES % (AUTO) 3.1 % (3-13); PLATELET COUNT 247 10^3/uL (150-450); RED CELL DISTRIBUTION WIDTH 18.3 % (11.5-14.0); SEGMENTED NEUTROPHILS % (AUTO) 73.9 % (42-78); TOTAL CELLS COUNTED % (AUTO) 100 %; WHITE BLOOD COUNT 5.3 10^3/uL (4.0-10.5)
[2018-02-26 04:15] LABS: ALANINE AMINOTRANSFERASE 21 U/L (9-52); ALBUMIN 3.3 g/dL (3.5-5.0); ALKALINE PHOSPHATASE 73 U/L (38-126); ANION GAP 13 (5-19); ASPARTATE AMINO TRANSFERASE 17 U/L (14-36); BILIRUBIN,DIRECT 0.4 mg/dL (0.0-0.4); BLOOD UREA NITROGEN 36 mg/dL (7-20); CALCIUM 9.5 mg/dL (8.4-10.2); CARBON DIOXIDE 27 mmol/L (22-30); CHLORIDE 98 mmol/L (98-107); GLUCOSE 266 mg/dL (75-110); POTASSIUM 4.2 mmol/L (3.6-5.0); SODIUM 138.2 mmol/L (137-145); TOTAL PROTEIN 5.8 g/dL (6.3-8.2)
[2018-02-26 04:26] LABS: CREATINE KINASE MB 0.69 ng/mL (<4.55)
[2018-02-26 04:31] LABS: TROPONIN I < 0.012 ng/mL
[2018-02-26] MEDS: METRONIDAZOLE 500 MG/NS RTU 500 MG/100 ML RTUPB IV SCH ×3 (05:42→21:39)
[2018-02-26] MEDS: GABAPENTIN 300 MG CAPSULE PO SCH ×3 (05:42→21:37)
[2018-02-26] MEDS: LANSOPRAZOLE 30 MG TAB.RAP.DR PO SCH (05:42)
[2018-02-26] MEDS: INSULIN LISPRO 100 UNIT/ML 3 ML VIAL SUBCUT PRN ×2 (07:05→18:49)
[2018-02-26] MEDS ORDERED: NOREPINEPHRINE BITARTRATE INJ/PF 4 MG/4 ML SDV IV ONE (09:28)
[2018-02-26] MEDS ORDERED: NORMAL SALINE 1000 ML 1,000 ML IV PRN (09:53)
[2018-02-26] MEDS: CYANOCOBALAMIN (VITAMIN B-12) 1,000 MCG TABLET PO SCH (10:40)
[2018-02-26] MEDS: ENOXAPARIN SODIUM INJ 40 MG/0.4 ML DISP.SYRIN SUBCUT SCH (10:41)
[2018-02-26] MEDS: NORMAL SALINE 1000 ML 1,000 ML IV PRN ×2 (10:41→19:50)
[2018-02-26] MEDS: INSULIN DETEMIR 100 UNIT/ML 3 ML PEN SUBCUT SCH ×2 (10:46→18:46)
[2018-02-26 12:11] LABS: TROPONIN I < 0.012 ng/mL
--- NOTE | 2018-02-26 18:50 | PDOC PROGRESS REPORT ---
Subjective Progress Note for:: 02/26/18 Subjective:: This is 72 years old female patient presented with chief complaint of generalized weakness and intractable diarrhea. At the ER patient found to be hypotensive with blood pressure of 82/50 for which she was bolused with normal saline. Patient has underlying hypertension, diabetes mellitus and history of uterine cancer. Reason For Visit: HYPOTENSION AND HYPOVOLEMIC SHOCK, Physical Exam Vital Signs: Temp Pulse Resp BP Pulse Ox 97.8 F 80 16 123/60 100 02/26/18 12:10 02/26/18 12:10 02/26/18 12:10 02/26/18 12:10 02/26/18 12:10 General appearance: PRESENT: no acute distress Head exam: PRESENT: other - Alopecia due to chemo Eye exam: PRESENT: conjunctiva pink Mouth exam: PRESENT: moist Neck exam: ABSENT: carotid bruit, JVD, lymphadenopathy, thyromegaly Respiratory exam: PRESENT: clear to auscultation evangelina. ABSENT: rales, rhonchi, wheezes Cardiovascular exam: PRESENT: RRR. ABSENT: diastolic murmur, rubs, systolic murmur GI/Abdominal exam: PRESENT: normal bowel sounds, soft. ABSENT: distended, guarding, mass, organolmegaly, rebound, tenderness Neurological exam: PRESENT: alert, oriented to time, oriented to situation Results Laboratory Results: 02/26/18 03:38 02/26/18 03:38 02/26/18 02/26/18 02/26/18 03:38 03:38 03:38 WBC 5.3 RBC 3.00 L Hgb 9.7 L Hct 27.6 L MCV 92 MCH 32.5 MCHC 35.2 RDW 18.3 H Plt Count 247 Seg Neutrophils % 73.9 Lymphocytes % 21.8 Monocytes % 3.1 Eosinophils % 0.6 Basophils % 0.6 Absolute Neutrophils 3.9 Absolute Lymphocytes 1.2 Absolute Monocytes 0.2 Absolute Eosinophils 0.0 Absolute Basophils 0.0 Sodium 138.2 Potassium 4.2 Chloride 98 Carbon Dioxide 27 Anion Gap 13 BUN 36 H Creatinine 0.97 Est GFR ( Amer) > 60 Est GFR (Non-Af Amer) 56 L Glucose 266 H Calcium 9.5 Total Bilirubin 1.0 AST 17 ALT 21 Alkaline Phosphatase 73 Total Protein 5.8 L Albumin 3.3 L TSH 0.86 02/26/18 02/26/18 02/26/18 03:38 03:38 11:25 Creatine Kinase 72 61 CK-MB (CK-2) 0.69 Troponin I < 0.012 02/26/18 11:25 Creatine Kinase CK-MB (CK-2) 0.50 Troponin I < 0.012 Impressions: Chest X-Ray 02/25/18 14:37 IMPRESSION: NO ACUTE RADIOGRAPHIC FINDING IN THE CHEST. Assessment & Plan - Diagnosis (1) Hypotension Qualifiers: Hypotension type: other hypotension type Qualified Code(s): I95.89 - Other hypotension Is this a current diagnosis for this admission?: Yes Plan: Gentle hydration. (2) Intractable diarrhea Is this a current diagnosis for this admission?: Yes Plan: Patient has been started on Flagyl and Zosyn. I discontinued the Zosyn and started her on Cipro. 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
[2018-02-26] MEDS ORDERED: CIPROFLOXACIN 400 MG/D5W RTU 400 MG/200 ML RTUPB IV ONE ×2 (20:00→21:45)
[2018-02-26] MEDS: ATORVASTATIN CALCIUM 40 MG TABLET PO SCH (21:37)
[2018-02-27] MEDS: DEXTROSE 50%-WATER 25 GM/50 ML DISP.SYRIN IV PRN (04:18)
[2018-02-27] MEDS ORDERED: NORMAL SALINE 500 ML IV ONE (04:45)
[2018-02-27] MEDS: NORMAL SALINE 1000 ML 1,000 ML IV PRN ×2 (05:42→21:11)
[2018-02-27 07:17] LABS: ABSOLUTE LYMPHOCYTES (AUTO) 1.1 10^3/uL (0.5-4.7); ABSOLUTE MONOCYTES (AUTO) 0.1 10^3/uL (0.1-1.4); ABSOLUTE NEUT (AUTO) 2.5 10^3/uL (1.7-8.2); BASOPHILS % (AUTO) 0.4 % (0-2); EOSINOPHILS % (AUTO) 1.1 % (0-6); HEMATOCRIT 23.8 % (36.0-47.0); HEMOGLOBIN 8.1 g/dL (12.0-15.5); LYMPHOCYTES % (AUTO) 28.4 % (13-45); MEAN CORPUSCULAR HGB CONC 34.2 g/dL (32.0-36.0); MEAN CORPUSCULAR VOLUME 94 fl (80-97); MONOCYTES % (AUTO) 3.7 % (3-13); PLATELET COUNT 202 10^3/uL (150-450); RED BLOOD COUNT 2.54 10^6/uL (3.72-5.28); RED CELL DISTRIBUTION WIDTH 18.3 % (11.5-14.0); SEGMENTED NEUTROPHILS % (AUTO) 66.4 % (42-78); TOTAL CELLS COUNTED % (AUTO) 100 %; WHITE BLOOD COUNT 3.8 10^3/uL (4.0-10.5)
[2018-02-27 07:53] LABS: ALANINE AMINOTRANSFERASE 20 U/L (9-52); ALBUMIN 2.5 g/dL (3.5-5.0); ALKALINE PHOSPHATASE 52 U/L (38-126); ANION GAP 8 (5-19); ASPARTATE AMINO TRANSFERASE 13 U/L (14-36); BILIRUBIN,DIRECT 0.3 mg/dL (0.0-0.4); BILIRUBIN,TOTAL 0.3 mg/dL (0.2-1.3); BLOOD UREA NITROGEN 26 mg/dL (7-20); CALCIUM 7.8 mg/dL (8.4-10.2); CARBON DIOXIDE 23 mmol/L (22-30); CHLORIDE 110 mmol/L (98-107); GLUCOSE 93 mg/dL (75-110); SODIUM 140.6 mmol/L (137-145); TOTAL PROTEIN 4.8 g/dL (6.3-8.2)
[2018-02-27] MEDS: GABAPENTIN 300 MG CAPSULE PO SCH ×3 (08:21→21:13)
[2018-02-27] MEDS: LANSOPRAZOLE 30 MG TAB.RAP.DR PO SCH (08:21)
[2018-02-27] MEDS: METRONIDAZOLE 500 MG/NS RTU 500 MG/100 ML RTUPB IV SCH ×3 (08:21→21:12)
--- NOTE | 2018-02-27 09:37 | RADIOLOGY REPORT (SQ) ---
EXAM DESCRIPTION: CHEST SINGLE VIEW COMPLETED DATE/TIME: 02/27/2018 9:22 am REASON FOR STUDY: PNA COMPARISON: 02/25/2018 EXAM PARAMETERS: NUMBER OF VIEWS: One view. TECHNIQUE: Single frontal radiographic view of the chest acquired. RADIATION DOSE: NA LIMITATIONS: None. FINDINGS: LUNGS AND PLEURA: There is improved aeration of the right lung base when compared to prior examination. The lungs are otherwise clear. MEDIASTINUM AND HILAR STRUCTURES: Unchanged HEART AND VASCULAR STRUCTURES: Unchanged BONES: No acute findings. HARDWARE: Stable position of the right chest wall injection catheter OTHER: No other significant finding. IMPRESSION: Interval improvement of right lung base aeration. TECHNICAL DOCUMENTATION: JOB ID: [id number] [employer]- All Rights Reserved Reading location - IP/workstation name: [email or web address]
[2018-02-27] MEDS: CIPROFLOXACIN 400 MG/D5W RTU 400 MG/200 ML RTUPB IV SCH ×2 (09:38→21:12)
[2018-02-27] MEDS: ENOXAPARIN SODIUM INJ 40 MG/0.4 ML DISP.SYRIN SUBCUT SCH (09:40)
[2018-02-27] MEDS: INSULIN DETEMIR 100 UNIT/ML 3 ML PEN SUBCUT SCH ×2 (10:31→18:25)
[2018-02-27] MEDS: CYANOCOBALAMIN (VITAMIN B-12) 1,000 MCG TABLET PO SCH (10:35)
[2018-02-27] MEDS: INSULIN LISPRO 100 UNIT/ML 3 ML VIAL SUBCUT PRN (12:39)
--- NOTE | 2018-02-27 16:43 | PDOC PROGRESS REPORT ---
Subjective Progress Note for:: 02/27/18 Subjective:: I seen patient while she is sleeping quietly. Patient was transferred yesterday from [facility] to ICU because of worsening hypotension. Levophed was ordered but was not carried out because her blood pressure is relatively stable. Patient was also found to be hypothermic and she is on bear hugger. Patient's diarrhea has stopped. Reason For Visit: HYPOTENSION AND HYPOVOLEMIC SHOCK, Physical Exam Vital Signs: Temp Pulse Resp BP Pulse Ox 96.8 F L 79 21 H 118/66 96 02/27/18 10:00 02/27/18 10:00 02/27/18 10:00 02/27/18 10:00 02/27/18 10:00 Intake & Output 02/26/18 02/27/18 02/28/18 06:59 06:59 06:59 Intake Total 3092 650 Output Total 400 550 Balance 2692 100 Weight 83.2 kg Results Laboratory Results: 02/27/18 07:01 02/27/18 07:01 02/27/18 02/27/18 07:01 07:01 WBC 3.8 L RBC 2.54 L Hgb 8.1 L Hct 23.8 L MCV 94 MCH 32.0 MCHC 34.2 RDW 18.3 H Plt Count 202 Seg Neutrophils % 66.4 Lymphocytes % 28.4 Monocytes % 3.7 Eosinophils % 1.1 Basophils % 0.4 Absolute Neutrophils 2.5 Absolute Lymphocytes 1.1 Absolute Monocytes 0.1 Absolute Eosinophils 0.0 Absolute Basophils 0.0 Sodium 140.6 Potassium 4.0 Chloride 110 H Carbon Dioxide 23 Anion Gap 8 BUN 26 H Creatinine 0.88 Est GFR ( Amer) > 60 Est GFR (Non-Af Amer) > 60 Glucose 93 Calcium 7.8 L Total Bilirubin 0.3 AST 13 L ALT 20 Alkaline Phosphatase 52 Total Protein 4.8 L Albumin 2.5 L 02/26/18 02/26/18 02/26/18 03:38 03:38 11:25 Creatine Kinase 72 61 CK-MB (CK-2) 0.69 Troponin I < 0.012 02/26/18 11:25 Creatine Kinase CK-MB (CK-2) 0.50 Troponin I < 0.012 Impressions: Chest X-Ray 02/27/18 00:00 IMPRESSION: Interval improvement of right lung base aeration. Assessment & Plan - Diagnosis (1) Hypotension Qualifiers: Hypotension type: other hypotension type Qualified Code(s): I95.89 - Other hypotension Is this a current diagnosis for this admission?: Yes Plan: Improving and stable. Levophed on hold. Continue IV resuscitation. (2) Intractable diarrhea Is this a current diagnosis for this admission?: Yes Plan: Has improved Continue IV Flagyl and Cipro. 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 Dr. Dan consulted
[2018-02-27] MEDS ORDERED: ONDANSETRON 4 MG TAB.RAPDIS ONE (18:13)
[2018-02-27] MEDS ORDERED: ONDANSETRON 4 MG TAB.RAPDIS PO PRN (18:48)
[2018-02-27] MEDS: ATORVASTATIN CALCIUM 40 MG TABLET PO SCH (21:13)
[2018-02-28] MEDS: DEXTROSE 50%-WATER 25 GM/50 ML DISP.SYRIN IV PRN (02:42)
[2018-02-28] MEDS: METRONIDAZOLE 500 MG/NS RTU 500 MG/100 ML RTUPB IV SCH ×3 (05:00→22:03)
[2018-02-28] MEDS: LANSOPRAZOLE 30 MG TAB.RAP.DR PO SCH (05:01)
[2018-02-28] MEDS: GABAPENTIN 300 MG CAPSULE PO SCH ×3 (05:01→22:05)
[2018-02-28 05:14] LABS: ABSOLUTE MONOCYTES (AUTO) 0.1 10^3/uL (0.1-1.4); ABSOLUTE NEUT (AUTO) 2.3 10^3/uL (1.7-8.2); BASOPHILS % (AUTO) 0.3 % (0-2); HEMATOCRIT 23.2 % (36.0-47.0); HEMOGLOBIN 8.1 g/dL (12.0-15.5); LYMPHOCYTES % (AUTO) 27.9 % (13-45); MEAN CORPUSCULAR HEMOGLOBIN 32.5 pg (27.0-33.4); MEAN CORPUSCULAR HGB CONC 34.8 g/dL (32.0-36.0); MEAN CORPUSCULAR VOLUME 93 fl (80-97); MONOCYTES % (AUTO) 3.8 % (3-13); PLATELET COUNT 199 10^3/uL (150-450); RED BLOOD COUNT 2.48 10^6/uL (3.72-5.28); TOTAL CELLS COUNTED % (AUTO) 100 %; WHITE BLOOD COUNT 3.5 10^3/uL (4.0-10.5)
[2018-02-28 05:31] LABS: ALANINE AMINOTRANSFERASE 23 U/L (9-52); ALBUMIN 2.4 g/dL (3.5-5.0); ALKALINE PHOSPHATASE 52 U/L (38-126); ANION GAP 8 (5-19); ASPARTATE AMINO TRANSFERASE 13 U/L (14-36); BILIRUBIN,DIRECT 0.2 mg/dL (0.0-0.4); BILIRUBIN,TOTAL 0.2 mg/dL (0.2-1.3); BLOOD UREA NITROGEN 15 mg/dL (7-20); CALCIUM 8.3 mg/dL (8.4-10.2); CARBON DIOXIDE 24 mmol/L (22-30); CHLORIDE 110 mmol/L (98-107); GLUCOSE 68 mg/dL (75-110); SODIUM 141.5 mmol/L (137-145); TOTAL PROTEIN 4.3 g/dL (6.3-8.2)
--- NOTE | 2018-02-28 08:24 | PDOC CONSULTATION ---
Consultation Consult Date: 02/28/18 Attending physician:: BELLA DOWLING Consult reason:: Known history of stage IV endometrial cancer, receiving chemotherapy, here with hypotension, sepsis History of Present Illness Admission Date/PCP: 02/25/18 20:39 HONEY DAMON PA-C Patient complains of: Weakness, hypotension History of Present Illness: KATHY NOBLES is a 72 year old female who presents with 3-4 day history of weakness, poor p.o. intake, severe constipation. She has been on active chemotherapy received last dose of chemotherapy approximately 7-10 days ago, was receiving carboplatin and paclitaxel, she was diagnosed with initially stage III endometrial cancer but soon after surgery was noted with liver lesions , so does have stage IV disease. Thus far is received 4 cycles of chemotherapy , and is planned for further chemotherapy as an outpatient. In the last 1-2 weeks she has been dealing with hypotension, we have cut down on all over oral antihypertensives, and she has come off all of them. But her p.o. intake has been poor over the last couple weeks and I think that is the reason for the severe dehydration. In addition she was fitting criteria for sepsis, was on the floor and was hypotensive there, getting weaker so she was transferred down to the ICU for consideration of aggressive hydration and pressors. Ultimately over the last 24 hours she has not required any pressors and looks better today. Thus far cultures have been negative. She has been hypoglycemic throughout the admission as well but felt to be secondary to poor p.o. intake. Past Medical History Cardiac Medical History: Reports: Hypertension Denies: Coronary Artery Disease, Myocardial Infarction Pulmonary Medical History: Reports: Chronic Obstructive Pulmonary Disease (COPD) , Sleep Apnea Denies: Asthma, Bronchitis, Pneumonia Neurological Medical History: Denies: Seizures Endocrine Medical History: Reports: Diabetes Mellitus Type 2 Malignancy Medical History: Reports: Other - uterine cancer Musculoskeltal Medical History: Reports: Arthritis - right knee Hematology: Denies: Anemia Past Surgical History Past Surgical History: Reports: Hysterectomy Social History Information Source: Patient Smoking Status: Former Smoker Last Time Smoked: 20 years Frequency of Alcohol Use: None Hx Recreational Drug Use: No Drugs: Marijuana - Advance Directive Resuscitation Status: Full Code Family History Family History: DM - Both parents Parental Family History Reviewed: Yes Children Family History Reviewed: Yes Sibling(s) Family History Reviewed.: Yes Medication/Allergy Home Medications: Atorvastatin Calcium 40 mg PO QHS 04/23/18 Cyanocobalamin (Vitamin B-12) [Vitamin B-12] 1 tab PO DAILY 11/29/17 Insulin Detemir [Levemir Flextouch] 65 units SQ BID 11/29/17 Pioglitazone HCl [Actos] 30 mg PO DAILY 11/29/17 Gabapentin [Neurontin 300 mg Capsule] 300 mg PO Q8 02/25/18 Sitagliptin Phos/Metformin HCl [Janumet Xr 50-1,000 mg Tablet] 1 each PO WSUPPER 02/25/18 Allergies/Adverse Reactions: No Known Allergies Allergy (Verified 02/25/18 18:59) Review of Systems Constitutional: ABSENT: chills, fever(s), headache(s), weight gain, weight loss Eyes: ABSENT: visual disturbances Ears: ABSENT: hearing changes Cardiovascular: ABSENT: chest pain, dyspnea on exertion, edema, orthropnea, palpitations Respiratory: ABSENT: cough, hemoptysis Gastrointestinal: ABSENT: abdominal pain, constipation, diarrhea, hematemesis, hematochezia, nausea, vomiting Genitourinary: ABSENT: dysuria, hematuria Musculoskeletal: ABSENT: joint swelling Integumentary: ABSENT: rash, wounds Neurological: ABSENT: abnormal gait, abnormal speech, confusion, dizziness, focal weakness, syncope Psychiatric: ABSENT: anxiety, depression, homidical ideation, suicidal ideation Endocrine: ABSENT: cold intolerance, heat intolerance, polydipsia, polyuria Hematologic/Lymphatic: ABSENT: easy bleeding, easy bruising Physical Exam Vital Signs: Temp Pulse Resp BP Pulse Ox 97.0 F 77 15 120/67 100 02/28/18 07:41 02/28/18 07:45 02/28/18 07:41 02/28/18 07:41 02/28/18 07:41 Intake & Output 02/27/18 02/28/18 03/01/18 06:59 06:59 06:59 Intake Total 3092 3869 480 Output Total 400 4200 400 Balance 2692 -331 80 Weight 83.2 kg 86.9 kg General appearance: PRESENT: no acute distress, well-developed, well-nourished Head exam: PRESENT: atraumatic, normocephalic Eye exam: PRESENT: conjunctiva pink, EOMI, PERRLA. ABSENT: scleral icterus Ear exam: PRESENT: normal external ear exam Mouth exam: PRESENT: moist, tongue midline Neck exam: ABSENT: carotid bruit, JVD, lymphadenopathy, thyromegaly Respiratory exam: PRESENT: clear to auscultation evangelina. ABSENT: rales, rhonchi, wheezes Cardiovascular exam: PRESENT: RRR. ABSENT: diastolic murmur, rubs, systolic murmur Pulses: PRESENT: normal dorsalis pedis pul Vascular exam: PRESENT: normal capillary refill GI/Abdominal exam: PRESENT: normal bowel sounds, soft. ABSENT: distended, guarding, mass, organolmegaly, rebound, tenderness Rectal exam: PRESENT: deferred Extremities exam: PRESENT: full ROM. ABSENT: calf tenderness, clubbing, pedal edema Neurological exam: PRESENT: alert, awake, oriented to person, oriented to place , oriented to time, oriented to situation, CN II-XII grossly intact. ABSENT: motor sensory deficit Psychiatric exam: PRESENT: appropriate affect, normal mood. ABSENT: homicidal ideation, suicidal ideation Skin exam: PRESENT: dry, intact, warm. ABSENT: cyanosis, rash Results Laboratory Results: 02/28/18 04:50 02/28/18 04:50 02/28/18 02/28/18 04:50 04:50 WBC 3.5 L RBC 2.48 L Hgb 8.1 L Hct 23.2 L MCV 93 MCH 32.5 MCHC 34.8 RDW 18.0 H Plt Count 199 Seg Neutrophils % 67.0 Lymphocytes % 27.9 Monocytes % 3.8 Eosinophils % 1.0 Basophils % 0.3 Absolute Neutrophils 2.3 Absolute Lymphocytes 1.0 Absolute Monocytes 0.1 Absolute Eosinophils 0.0 Absolute Basophils 0.0 Sodium 141.5 Potassium 4.0 Chloride 110 H Carbon Dioxide 24 Anion Gap 8 BUN 15 Creatinine 0.73 Est GFR ( Amer) > 60 Est GFR (Non-Af Amer) > 60 Glucose 68 L Calcium 8.3 L Total Bilirubin 0.2 AST 13 L ALT 23 Alkaline Phosphatase 52 Total Protein 4.3 L Albumin 2.4 L 02/26/18 02/26/18 02/26/18 03:38 03:38 11:25 Creatine Kinase 72 61 CK-MB (CK-2) 0.69 Troponin I < 0.012 02/26/18 11:25 Creatine Kinase CK-MB (CK-2) 0.50 Troponin I < 0.012 Impressions: Chest X-Ray 02/27/18 00:00 IMPRESSION: Interval improvement of right lung base aeration. Assessment & Plan - Diagnosis (1) Uterine cancer Qualifiers: Malignant neoplasm of uterus location: body of uterus Malignant neoplasm of body of uterus location: endometrium Qualified Code(s): C54.1 - Malignant neoplasm of endometrium Is this a current diagnosis for this admission?: Yes Plan: Known history of endometrial cancer, status post chemotherapy cycle #4, plan for continued chemotherapy as an outpatient. But I did discuss with the patient that she would need to recover fully from this episode before we consider any further treatment. Today spent greater than 70 minutes in discussion with the patient as well as sister at bedside. (2) Hypotension Qualifiers: Hypotension type: hypotension due to hypovolemia Qualified Code(s): I95.89 - Other hypotension; E86.1 - Hypovolemia; E86.1 - Hypovolemia Is this a current diagnosis for this admission?: Yes Plan: Hypotension secondary to hypovolemia from constipation as well as poor p.o. intake, probably related in part to chemotherapy. Discussed continued hydration , but hospitalist he may need to cut down on IV fluids, if hypotension continues would consider 1 unit of packed red blood cells. (3) Anemia associated with chemotherapy Is this a current diagnosis for this admission?: Yes Plan: Anemia partly related to chemotherapy, also secondary to hypovolemia, and aggressive hydration, will watch today, if patient still is hypotensive when she gets up and moves around, will give her 1 unit of packed red blood cell. - Time Time Spent: Greater than 70 Minutes - Inpatient Certification Based on my medical assessment, after consideration of the patient's comorbidities, presenting symptoms, or acuity I expect that the services needed warrant INPATIENT care.: Yes I certify that my determination is in accordance with my understanding of Medicare's requirements for reasonable and necessary INPATIENT services [42 CFR 412.3e].: Yes Medical Necessity: Need For IV Fluids, Need For Continuous Telemetry Monitoring , Need for IV Antibiotics, Risk of Complication if Not Cared For in Hospital
[2018-02-28] MEDS: ENOXAPARIN SODIUM INJ 40 MG/0.4 ML DISP.SYRIN SUBCUT SCH (11:02)
[2018-02-28] MEDS: CIPROFLOXACIN 400 MG/D5W RTU 400 MG/200 ML RTUPB IV SCH ×2 (11:02→23:23)
[2018-02-28] MEDS: CYANOCOBALAMIN (VITAMIN B-12) 1,000 MCG TABLET PO SCH (11:03)
[2018-02-28] MEDS: INSULIN DETEMIR 100 UNIT/ML 3 ML PEN SUBCUT SCH ×2 (11:06→18:26)
[2018-02-28] MEDS: NORMAL SALINE 1000 ML 1,000 ML IV PRN (14:32)
--- NOTE | 2018-02-28 16:30 | PDOC PROGRESS REPORT ---
Subjective Progress Note for:: 02/28/18 Subjective:: I seen patient resting in bed comfortably. She is more awake alert oriented and she is more conversant. Her blood chemistries within normal limits. She has mild pancytopenia with hemoglobin of 8.1. Her blood pressures currently at her baseline. Since patient has been doing well her level of care is downgraded to IMCU. Reason For Visit: HYPOTENSION AND HYPOVOLEMIC SHOCK, Physical Exam Vital Signs: Temp Pulse Resp BP Pulse Ox 98.2 F 79 25 H 144/65 H 99 02/28/18 12:00 02/28/18 11:33 02/28/18 12:00 02/28/18 11:33 02/28/18 11:33 Intake & Output 02/27/18 02/28/18 03/01/18 06:59 06:59 06:59 Intake Total 3092 3869 480 Output Total 400 4200 975 Balance 0071 -862 -878 Weight 83.2 kg 86.9 kg Results Laboratory Results: 02/28/18 04:50 02/28/18 04:50 02/28/18 02/28/18 04:50 04:50 WBC 3.5 L RBC 2.48 L Hgb 8.1 L Hct 23.2 L MCV 93 MCH 32.5 MCHC 34.8 RDW 18.0 H Plt Count 199 Seg Neutrophils % 67.0 Lymphocytes % 27.9 Monocytes % 3.8 Eosinophils % 1.0 Basophils % 0.3 Absolute Neutrophils 2.3 Absolute Lymphocytes 1.0 Absolute Monocytes 0.1 Absolute Eosinophils 0.0 Absolute Basophils 0.0 Sodium 141.5 Potassium 4.0 Chloride 110 H Carbon Dioxide 24 Anion Gap 8 BUN 15 Creatinine 0.73 Est GFR ( Amer) > 60 Est GFR (Non-Af Amer) > 60 Glucose 68 L Calcium 8.3 L Total Bilirubin 0.2 AST 13 L ALT 23 Alkaline Phosphatase 52 Total Protein 4.3 L Albumin 2.4 L 02/26/18 02/26/18 02/26/18 03:38 03:38 11:25 Creatine Kinase 72 61 CK-MB (CK-2) 0.69 Troponin I < 0.012 02/26/18 11:25 Creatine Kinase CK-MB (CK-2) 0.50 Troponin I < 0.012 Impressions: Chest X-Ray 02/27/18 00:00 IMPRESSION: Interval improvement of right lung base aeration. Assessment & Plan - Diagnosis (1) Hypotension Qualifiers: Hypotension type: other hypotension type Qualified Code(s): I95.89 - Other hypotension Is this a current diagnosis for this admission?: Yes Plan: Has been improving (2) Intractable diarrhea Is this a current diagnosis for this admission?: Yes Plan: Has resolved (3) Type 2 diabetes mellitus Qualifiers: Diabetes mellitus shelter insulin use: unspecified creative guru insulin use status Diabetes mellitus complication status: without complication Qualified Code(s): E11.9 - Type 2 diabetes mellitus without complications Is this a current diagnosis for this admission?: Yes Plan: Patient started on sliding scale (4) History of uterine cancer Is this a current diagnosis for this admission?: Yes Plan: Management per her primary oncologist. Dr. Dan consulted - Time Time Spent with patient: 25-34 minutes
[2018-02-28] MEDS: ATORVASTATIN CALCIUM 40 MG TABLET PO SCH (22:05)
[2018-02-28] MEDS: INSULIN LISPRO 100 UNIT/ML 3 ML VIAL SUBCUT PRN (22:06)
[2018-03-01] MEDS: NORMAL SALINE 1000 ML 1,000 ML IV PRN ×2 (03:25→18:37)
[2018-03-01] MEDS: LANSOPRAZOLE 30 MG TAB.RAP.DR PO SCH (05:24)
[2018-03-01] MEDS: METRONIDAZOLE 500 MG/NS RTU 500 MG/100 ML RTUPB IV SCH ×3 (05:24→21:25)
[2018-03-01] MEDS: GABAPENTIN 300 MG CAPSULE PO SCH ×3 (05:24→21:26)
[2018-03-01 05:54] LABS: HEMATOCRIT 24.2 % (36.0-47.0); HEMOGLOBIN 8.4 g/dL (12.0-15.5); MEAN CORPUSCULAR HEMOGLOBIN 32.5 pg (27.0-33.4); MEAN CORPUSCULAR HGB CONC 34.7 g/dL (32.0-36.0); MEAN CORPUSCULAR VOLUME 94 fl (80-97); PLATELET COUNT 210 10^3/uL (150-450); RED BLOOD COUNT 2.58 10^6/uL (3.72-5.28); RED CELL DISTRIBUTION WIDTH 18.8 % (11.5-14.0); WHITE BLOOD COUNT 4.1 10^3/uL (4.0-10.5)
--- NOTE | 2018-03-01 08:33 | PDOC PROGRESS REPORT ---
Subjective Progress Note for:: 03/01/18 Subjective:: Greatly improved today, has gotten up to a bedside chair, asked nursing to get PT involved to have her walk down the reeves and see her functional status. Reason For Visit: HYPOTENSION AND HYPOVOLEMIC SHOCK, Physical Exam Vital Signs: Temp Pulse Resp BP Pulse Ox 98.5 F 83 18 147/60 H 98 03/01/18 03:26 03/01/18 07:00 03/01/18 03:26 03/01/18 03:26 03/01/18 03:26 Intake & Output 02/28/18 03/01/18 03/02/18 06:59 06:59 06:59 Intake Total 3869 4023 Output Total 4200 5708 Balance -331 -1727 Weight 86.9 kg 88.5 kg General appearance: PRESENT: no acute distress, well-developed, well-nourished Head exam: PRESENT: atraumatic, normocephalic Eye exam: PRESENT: conjunctiva pink, EOMI, PERRLA. ABSENT: scleral icterus Ear exam: PRESENT: normal external ear exam Mouth exam: PRESENT: moist, tongue midline Neck exam: ABSENT: carotid bruit, JVD, lymphadenopathy, thyromegaly Respiratory exam: PRESENT: clear to auscultation evangelina. ABSENT: rales, rhonchi, wheezes Cardiovascular exam: PRESENT: RRR. ABSENT: diastolic murmur, rubs, systolic murmur Pulses: PRESENT: normal dorsalis pedis pul Vascular exam: PRESENT: normal capillary refill GI/Abdominal exam: PRESENT: normal bowel sounds, soft. ABSENT: distended, guarding, mass, organolmegaly, rebound, tenderness Rectal exam: PRESENT: deferred Extremities exam: PRESENT: full ROM. ABSENT: calf tenderness, clubbing, pedal edema Neurological exam: PRESENT: alert, awake, oriented to person, oriented to place , oriented to time, oriented to situation, CN II-XII grossly intact. ABSENT: motor sensory deficit Psychiatric exam: PRESENT: appropriate affect, normal mood. ABSENT: homicidal ideation, suicidal ideation Skin exam: PRESENT: dry, intact, warm. ABSENT: cyanosis, rash Results Laboratory Results: 03/01/18 05:35 02/28/18 04:50 03/01/18 05:35 WBC 4.1 RBC 2.58 L Hgb 8.4 L Hct 24.2 L MCV 94 MCH 32.5 MCHC 34.7 RDW 18.8 H Plt Count 210 02/26/18 02/26/18 02/26/18 03:38 03:38 11:25 Creatine Kinase 72 61 CK-MB (CK-2) 0.69 Troponin I < 0.012 02/26/18 11:25 Creatine Kinase CK-MB (CK-2) 0.50 Troponin I < 0.012 Impressions: Chest X-Ray 02/27/18 00:00 IMPRESSION: Interval improvement of right lung base aeration. Assessment & Plan - Diagnosis (1) Uterine cancer Qualifiers: Malignant neoplasm of uterus location: body of uterus Malignant neoplasm of body of uterus location: endometrium Qualified Code(s): C54.1 - Malignant neoplasm of endometrium Is this a current diagnosis for this admission?: Yes Plan: Further treatment plan as an outpatient (2) Hypotension Qualifiers: Hypotension type: hypotension due to hypovolemia Qualified Code(s): I95.89 - Other hypotension; E86.1 - Hypovolemia; E86.1 - Hypovolemia Is this a current diagnosis for this admission?: Yes Plan: Resolving, secondary to dehydration and poor p.o. intake (3) Anemia associated with chemotherapy Is this a current diagnosis for this admission?: Yes Plan: Hemoglobin improved, we will see how she does that she gets up and walks, if she still feels very dizzy and lightheaded as she walks I would recommend 1 unit of packed red blood cells.
[2018-03-01] MEDS: CIPROFLOXACIN 400 MG/D5W RTU 400 MG/200 ML RTUPB IV SCH ×2 (11:07→22:41)
[2018-03-01] MEDS: CYANOCOBALAMIN (VITAMIN B-12) 1,000 MCG TABLET PO SCH (11:07)
[2018-03-01] MEDS: ENOXAPARIN SODIUM INJ 40 MG/0.4 ML DISP.SYRIN SUBCUT SCH (11:08)
[2018-03-01] MEDS: INSULIN DETEMIR 100 UNIT/ML 3 ML PEN SUBCUT SCH ×2 (11:11→18:32)
--- NOTE | 2018-03-01 16:38 | PDOC PROGRESS REPORT ---
Subjective Progress Note for:: 03/01/18 Subjective:: Patient has marked improvement in her general condition. She is able to eat and tolerates well. She is able to participate with physical therapy. Vital signs and her blood works are within normal limits. She is potential discharge for tomorrow. Reason For Visit: HYPOTENSION AND HYPOVOLEMIC SHOCK, Physical Exam Vital Signs: Temp Pulse Resp BP Pulse Ox 98.0 F 81 18 136/70 H 99 03/01/18 10:49 03/01/18 14:00 03/01/18 10:49 03/01/18 10:49 03/01/18 10:49 Intake & Output 02/28/18 03/01/18 03/02/18 06:59 06:59 06:59 Intake Total 3869 4123 755 Output Total 4200 5750 1600 Balance -331 -9341 -845 Weight 86.9 kg 88.5 kg General appearance: PRESENT: no acute distress Eye exam: PRESENT: conjunctiva pink Mouth exam: PRESENT: moist Neck exam: ABSENT: carotid bruit, JVD, lymphadenopathy, thyromegaly Respiratory exam: PRESENT: clear to auscultation evangelina. ABSENT: rales, rhonchi, wheezes Cardiovascular exam: PRESENT: RRR. ABSENT: diastolic murmur, rubs, systolic murmur GI/Abdominal exam: PRESENT: normal bowel sounds, soft. ABSENT: distended, guarding, mass, organolmegaly, rebound, tenderness Neurological exam: PRESENT: alert, awake, oriented to time, oriented to situation Results Laboratory Results: 03/01/18 05:35 02/28/18 04:50 03/01/18 05:35 WBC 4.1 RBC 2.58 L Hgb 8.4 L Hct 24.2 L MCV 94 MCH 32.5 MCHC 34.7 RDW 18.8 H Plt Count 210 02/26/18 02/26/18 02/26/18 03:38 03:38 11:25 Creatine Kinase 72 61 CK-MB (CK-2) 0.69 Troponin I < 0.012 02/26/18 11:25 Creatine Kinase CK-MB (CK-2) 0.50 Troponin I < 0.012 Impressions: Chest X-Ray 02/27/18 00:00 IMPRESSION: Interval improvement of right lung base aeration. Assessment & Plan - Diagnosis (1) Hypotension Qualifiers: Hypotension type: other hypotension type Qualified Code(s): I95.89 - Other hypotension Is this a current diagnosis for this admission?: Yes Plan: Resolved (2) Intractable diarrhea Is this a current diagnosis for this admission?: Yes Plan: Resolved (3) Type 2 diabetes mellitus Qualifiers: Diabetes mellitus intermediate insulin use: unspecified intermediate insulin use status Diabetes mellitus complication status: without complication Qualified Code(s): E11.9 - Type 2 diabetes mellitus without complications Is this a current diagnosis for this admission?: Yes Plan: Patient started on sliding scale (4) History of uterine cancer Is this a current diagnosis for this admission?: Yes Plan: Malignant neoplasm of the endometrium and the patient has got for 4 sets of chemo.
[2018-03-01] MEDS: ATORVASTATIN CALCIUM 40 MG TABLET PO SCH (21:26)
[2018-03-02] MEDS: DEXTROSE 50%-WATER 25 GM/50 ML DISP.SYRIN IV PRN (04:38)
[2018-03-02] MEDS: METRONIDAZOLE 500 MG/NS RTU 500 MG/100 ML RTUPB IV SCH ×2 (05:33→13:30)
[2018-03-02] MEDS: GABAPENTIN 300 MG CAPSULE PO SCH ×2 (05:33→13:34)
[2018-03-02] MEDS: LANSOPRAZOLE 30 MG TAB.RAP.DR PO SCH (05:33)
[2018-03-02 05:59] LABS: ABSOLUTE MONOCYTES (AUTO) 0.3 10^3/uL (0.1-1.4); ABSOLUTE NEUT (AUTO) 2.7 10^3/uL (1.7-8.2); BASOPHILS % (AUTO) 0.4 % (0-2); EOSINOPHILS % (AUTO) 0.8 % (0-6); HEMATOCRIT 23.7 % (36.0-47.0); HEMOGLOBIN 8.2 g/dL (12.0-15.5); LYMPHOCYTES % (AUTO) 24.5 % (13-45); MEAN CORPUSCULAR HEMOGLOBIN 32.2 pg (27.0-33.4); MEAN CORPUSCULAR HGB CONC 34.6 g/dL (32.0-36.0); MEAN CORPUSCULAR VOLUME 93 fl (80-97); MONOCYTES % (AUTO) 7.4 % (3-13); PLATELET COUNT 218 10^3/uL (150-450); RED BLOOD COUNT 2.55 10^6/uL (3.72-5.28); RED CELL DISTRIBUTION WIDTH 18.4 % (11.5-14.0); SEGMENTED NEUTROPHILS % (AUTO) 66.9 % (42-78); TOTAL CELLS COUNTED % (AUTO) 100 %; WHITE BLOOD COUNT 4.1 10^3/uL (4.0-10.5)
--- NOTE | 2018-03-02 08:07 | PDOC PROGRESS REPORT ---
Subjective Progress Note for:: 03/02/18 Subjective:: Pt doing better this am, walked w/ PT, seems stronger. Will plan for 1 unit blood today as we would still consider continued chemo/rx as outpt and pt still symptomatic when she walked Reason For Visit: HYPOTENSION AND HYPOVOLEMIC SHOCK, Physical Exam Vital Signs: Temp Pulse Resp BP Pulse Ox 97.6 F 68 17 111/52 L 98 03/02/18 03:19 03/02/18 07:00 03/02/18 03:19 03/02/18 03:19 03/02/18 03:19 Intake & Output 03/01/18 03/02/18 03/03/18 06:59 06:59 06:59 Intake Total 4123 3824 Output Total 5755 3900 Balance -1627 -76 Weight 88.5 kg 87.5 kg General appearance: PRESENT: no acute distress, well-developed, well-nourished Head exam: PRESENT: atraumatic, normocephalic Eye exam: PRESENT: conjunctiva pink, EOMI, PERRLA. ABSENT: scleral icterus Ear exam: PRESENT: normal external ear exam Mouth exam: PRESENT: moist, tongue midline Neck exam: ABSENT: carotid bruit, JVD, lymphadenopathy, thyromegaly Respiratory exam: PRESENT: clear to auscultation evangelina. ABSENT: rales, rhonchi, wheezes Cardiovascular exam: PRESENT: RRR. ABSENT: diastolic murmur, rubs, systolic murmur Pulses: PRESENT: normal dorsalis pedis pul Vascular exam: PRESENT: normal capillary refill GI/Abdominal exam: PRESENT: normal bowel sounds, soft. ABSENT: distended, guarding, mass, organolmegaly, rebound, tenderness Rectal exam: PRESENT: deferred Extremities exam: PRESENT: full ROM. ABSENT: calf tenderness, clubbing, pedal edema Neurological exam: PRESENT: alert, awake, oriented to person, oriented to place , oriented to time, oriented to situation, CN II-XII grossly intact. ABSENT: motor sensory deficit Psychiatric exam: PRESENT: appropriate affect, normal mood. ABSENT: homicidal ideation, suicidal ideation Skin exam: PRESENT: dry, intact, warm. ABSENT: cyanosis, rash Results Laboratory Results: 03/02/18 05:40 02/28/18 04:50 03/02/18 05:40 WBC 4.1 RBC 2.55 L Hgb 8.2 L Hct 23.7 L MCV 93 MCH 32.2 MCHC 34.6 RDW 18.4 H Plt Count 218 Seg Neutrophils % 66.9 Lymphocytes % 24.5 Monocytes % 7.4 Eosinophils % 0.8 Basophils % 0.4 Absolute Neutrophils 2.7 Absolute Lymphocytes 1.0 Absolute Monocytes 0.3 Absolute Eosinophils 0.0 Absolute Basophils 0.0 02/26/18 02/26/18 02/26/18 03:38 03:38 11:25 Creatine Kinase 72 61 CK-MB (CK-2) 0.69 Troponin I < 0.012 02/26/18 11:25 Creatine Kinase CK-MB (CK-2) 0.50 Troponin I < 0.012 Impressions: Chest X-Ray 02/27/18 00:00 IMPRESSION: Interval improvement of right lung base aeration. Assessment & Plan - Diagnosis (1) Uterine cancer Qualifiers: Malignant neoplasm of uterus location: body of uterus Malignant neoplasm of body of uterus location: endometrium Qualified Code(s): C54.1 - Malignant neoplasm of endometrium Is this a current diagnosis for this admission?: Yes Plan: Further rx as oupt (2) Hypotension Qualifiers: Hypotension type: hypotension due to hypovolemia Qualified Code(s): I95.89 - Other hypotension; E86.1 - Hypovolemia; E86.1 - Hypovolemia Is this a current diagnosis for this admission?: Yes Plan: Resolved, 2nd to dehydration (3) Anemia associated with chemotherapy Is this a current diagnosis for this admission?: Yes Plan: Hb 8.2, since she will need myelosuppressive chemo/rx as oupt and pt symptomatic will give the blood just 1 unit today. - Time Time Spent with patient: 35 or more minutes Within: Other - Hopefully today if not reactions from blood
[2018-03-02] MEDS ORDERED: DIPHENHYDRAMINE HCL 25 MG CAPSULE PO PRN (08:24)
[2018-03-02] MEDS ORDERED: ACETAMINOPHEN 325 MG TABLET PO PRN (08:24)
[2018-03-02] MEDS ORDERED: FUROSEMIDE INJ/PF 20 MG/2 ML SDV IV PRN (08:25)
[2018-03-02] MEDS ORDERED: NORMAL SALINE 250 ML IV PRN (08:28)
--- NOTE | 2018-03-02 08:50 | PDOC DISCHARGE SUMMARY ---
General - Admit/Disc Date/PCP Admission Date/Primary Care Provider: 02/25/18 20:39 HONEY DAMON PA-C Discharge Date: 03/02/18 - Discharge Diagnosis (1) Hypotension Is this a current diagnosis for this admission?: Yes (2) Intractable diarrhea Is this a current diagnosis for this admission?: Yes (3) Type 2 diabetes mellitus Is this a current diagnosis for this admission?: Yes (4) History of uterine cancer Is this a current diagnosis for this admission?: Yes - Additional Information Resuscitation Status: Full Code Home Medications: Atorvastatin Calcium 40 mg PO QHS 11/29/17 Cyanocobalamin (Vitamin B-12) [Vitamin B-12] 1 tab PO DAILY 11/29/17 Insulin Detemir [Levemir Flextouch] 65 units SQ BID 11/29/17 Pioglitazone HCl [Actos] 30 mg PO DAILY 11/29/17 Gabapentin [Neurontin 300 mg Capsule] 300 mg PO Q8 02/25/18 Sitagliptin Phos/Metformin HCl [Janumet Xr 50-1,000 mg Tablet] 1 each PO WSUPPER 02/25/18 History of Present Illness History of Present Illness: KATHY NOBLES is a 72 year old female with history of multiple medical problems that would be mentioned below presented to emergency medical settlement intractable diarrhea with associated generalized weakness. She stated that she had no energy to get up and walk. She described her stool is loose. No nausea or vomiting. No melena or bright red bleeding per rectum. No fever or chills. No chest pain or dyspnea palpitations cough or wheezing. No headache but she has been having dizziness. When she came to the ER her EKG showed normal sinus rhythm with a rate of 88. Initial patient's blood pressure was 114/82 and later on dropped to 85/52 and 79/46. Blood pressure initially improved to 104/63 with hydration and later on was 97/57. Labs revealed mild hyponatremia and hypochloremia with azotemia of 36 and hyperglycemia 403. Lactic acid was 1.9 and calcium 10.5 with total protein 6.2. Urinalysis showed more than 500 protein in 20 ketones with 5 WBCs and 4 hyaline casts.. Chest x- ray showed no acute cardiopulmonary disease. She was given 6 units of IV insulin as well as a liter bolus of lactated Ringer and IV Zosyn. 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 At the ER patient found to be hypotensive with blood pressure of 82/50 for which she was bolused with normal saline. Patient admitted to [facility] and continue to be managed with normal saline at a rate of 150 mL/h. Despite the hydration patient continued to have hypotension and at this time the on-call night physician decided to transfer the patient to medical intensive care unit for aggressive hydration and to start her on Levophed drip. Fortunately without starting the Levophed patient' s blood pressure starts to stabilize and after 2 to days to stay in the ICU patient transferred back to [facility]. Her hospital course is complicated by recurrent hypoglycemia. The culprit for her recurrent hypoglycemia is the high- dose Levemir (65 units twice daily )is that she has been getting. I will reduce the dose of her Levemir to [address] Dan recommended to transfuse the patient's was 1 unit of PRBC. Her vital signs are stable and patient is also stable enough to be discharged today. She needs follow-up with her primary care physician and her primary oncologist. Physical Exam Vital Signs: Temp Pulse Resp BP Pulse Ox 97.6 F 71 15 137/68 H 99 03/02/18 03:19 03/02/18 07:56 03/02/18 07:56 03/02/18 07:56 03/02/18 07:56 Intake & Output 03/01/18 03/02/18 03/03/18 06:59 06:59 06:59 Intake Total 4123 3824 Output Total 5750 3900 Balance -1627 -76 Weight 88.5 kg 87.5 kg General appearance: PRESENT: no acute distress Head exam: PRESENT: other - Alopecia Eye exam: PRESENT: conjunctiva pale Mouth exam: PRESENT: moist Respiratory exam: PRESENT: clear to auscultation evangelina. ABSENT: rales, rhonchi, wheezes Cardiovascular exam: PRESENT: RRR. ABSENT: diastolic murmur, rubs, systolic murmur GI/Abdominal exam: PRESENT: normal bowel sounds, soft. ABSENT: distended, guarding, mass, organolmegaly, rebound, tenderness Extremities exam: PRESENT: full ROM. ABSENT: calf tenderness, clubbing, pedal edema Neurological exam: PRESENT: alert, awake, oriented to time, oriented to situation Results Laboratory Results: 03/02/18 05:40 02/28/18 04:50 03/02/18 05:40 WBC 4.1 RBC 2.55 L Hgb 8.2 L Hct 23.7 L MCV 93 MCH 32.2 MCHC 34.6 RDW 18.4 H Plt Count 218 Seg Neutrophils % 66.9 Lymphocytes % 24.5 Monocytes % 7.4 Eosinophils % 0.8 Basophils % 0.4 Absolute Neutrophils 2.7 Absolute Lymphocytes 1.0 Absolute Monocytes 0.3 Absolute Eosinophils 0.0 Absolute Basophils 0.0 02/26/18 02/26/18 02/26/18 03:38 03:38 11:25 Creatine Kinase 72 61 CK-MB (CK-2) 0.69 Troponin I < 0.012 02/26/18 11:25 Creatine Kinase CK-MB (CK-2) 0.50 Troponin I < 0.012 Impressions: Chest X-Ray 02/27/18 00:00 IMPRESSION: Interval improvement of right lung base aeration. Qualifiers - * PATIENT BEING DISCHARGED WITH ANY OF THE FOLLOWING DIAGNOSIS: No
[2018-03-02] MEDS: CIPROFLOXACIN 400 MG/D5W RTU 400 MG/200 ML RTUPB IV SCH (10:17)
[2018-03-02] MEDS: CYANOCOBALAMIN (VITAMIN B-12) 1,000 MCG TABLET PO SCH (10:19)
[2018-03-02] MEDS: ENOXAPARIN SODIUM INJ 40 MG/0.4 ML DISP.SYRIN SUBCUT SCH (10:20)
[2018-03-02] MEDS: INSULIN DETEMIR 100 UNIT/ML 3 ML PEN SUBCUT SCH (10:23)
[2018-03-02 15:10] VITALS: BP 162/69
== END 2018-03-02 16:08 | disposition home or self-care (01) | DRG 315 ==
LOC: ER 14:21 → EH 20:39 → 3W 02-26 12:02 → ICU 02-27 06:21 → 3N 02-28 12:20
PROVIDERS: ADMIT Family Medicine; ATTEND Family Medicine
PROC: 30233N1 Transfusion of Nonautologous Red Blood Cells into Peripheral Vein, Percutaneous Approach (ICD-10-PCS; principal; 2018-03-02)
DX: I95.89 Other hypotension (principal); C78.7 Secondary malignant neoplasm of liver and intrahepatic bile duct; D64.81 Anemia due to antineoplastic chemotherapy; R19.7 Diarrhea, unspecified; R68.0 Hypothermia, not associated with low environmental temperature; C54.1 Malignant neoplasm of endometrium; T45.1X5A Adverse effect of antineoplastic and immunosuppressive drugs, initial encounter; E11.649 Type 2 diabetes mellitus with hypoglycemia without coma; E86.1 Hypovolemia; E86.0 Dehydration; Z79.899 Other long term (current) drug therapy; E11.65 Type 2 diabetes mellitus with hyperglycemia; E87.8 Other disorders of electrolyte and fluid balance, not elsewhere classified; R79.89 Other specified abnormal findings of blood chemistry; I10 Essential (primary) hypertension; J44.9 Chronic obstructive pulmonary disease, unspecified; Z79.4 Long term (current) use of insulin; Z90.49 Acquired absence of other specified parts of digestive tract; Z87.891 Personal history of nicotine dependence; Z83.3 Family history of diabetes mellitus; M17.11 Unilateral primary osteoarthritis, right knee
CPT/HCPCS: 36415; 36430; 51701; 71045; 80053; 81001; 82550; 82553; 82803; 82962; 83605; 84443; 84484; 85025; 85027; 85610; 86850; 86900; 86901; 86920; 87040; 87086; 93005; 93010; 96361; 96365; 99291; G8978-GP; G8979-GP; J0744; J1650; J1815; J1940; J2543; J3490; J7030; J7040; J7120; P9016; S0119

== ENCOUNTER 2018-03-14 10:26 | Emergency (ER) | payer MEDICARE ==
[2018-03-14] MEDS ORDERED: NORMAL SALINE 1000 ML 1,000 ML IV ONE ×2 (11:22→13:17)
--- NOTE | 2018-03-14 11:22 | ER Document Report ---
ED Dizziness/Weakness - General Chief Complaint: General Weakness Stated Complaint: WEAKNESS Time Seen by Provider: 03/14/18 11:12 Notes: This is a 72-year-old female to the emergency department chief complaint of weakness. Patient is a ovarian cancer patient status post hysterectomy with metastasis. Feeling weak and dizzy. No chest pain. No shortness of breath. No other symptoms. Did not fall. Thinks that she is dehydrated TRAVEL OUTSIDE OF THE [place] IN LAST 30 DAYS: No - HPI Onset: Just prior to arrival - Related Data Allergies/Adverse Reactions: No Known Allergies Allergy (Verified 02/25/18 18:59) Past Medical History - General Information source: Patient - Social History Smoking Status: Smoker,Current Status Unk Cigarette use (# per day): No Frequency of alcohol use: None Drug Abuse: None Lives with: Family Family History: DM - Both parents - Past Medical History Cardiac Medical History: Reports: Hx Hypertension Denies: Hx Coronary Artery Disease, Hx Heart Attack Pulmonary Medical History: Reports: Hx COPD, Hx Sleep Apnea Denies: Hx Asthma, Hx Bronchitis, Hx Pneumonia Neurological Medical History: Denies: Hx Cerebrovascular Accident, Hx Seizures Endocrine Medical History: Reports: Hx Diabetes Mellitus Type 2 Renal/ Medical History: Denies: Hx Peritoneal Dialysis Musculoskeletal Medical History: Reports Hx Arthritis - right knee Past Surgical History: Reports: Hx Hysterectomy - Immunizations Hx Diphtheria, Pertussis, Tetanus Vaccination: No Hx Pneumococcal Vaccination: 08/09/14 Review of Systems - Review of Systems Constitutional: Malaise, Weakness. denies: Fever EENT: denies: Double vision, Difficulty swallowing, Throat swelling Cardiovascular: Dizziness. denies: Chest pain, Palpitations, Heart racing Respiratory: denies: Cough, Hurts to breathe, Short of breath, Wheezing Gastrointestinal: denies: Abdominal pain, Diarrhea, Nausea, Vomiting Genitourinary: denies: Burning, Dysuria, Flank pain Musculoskeletal: denies: Back pain, Joint pain, Muscle pain Skin: denies: Dryness, Lesions, Rash Neurological/Psychological: denies: Confusion, Weakness, Numbness Physical Exam - Vital signs Vitals: Pulse Ox 94 03/14/18 10:29 Interpretation: Normal - General General appearance: Appears well, Alert - HEENT Head: Normocephalic, Atraumatic Eyes: Normal Pupils: PERRL - Respiratory Respiratory status: No respiratory distress Chest status: Nontender Breath sounds: Normal Chest palpation: Normal - Cardiovascular Rhythm: Regular Heart sounds: Normal auscultation Murmur: No - Abdominal Inspection: Normal Distension: No distension Bowel sounds: Normal Tenderness: Nontender Organomegaly: No organomegaly - Back Back: Normal, Nontender - Extremities General upper extremity: Normal inspection, Nontender, Normal color, Normal ROM , Normal temperature General lower extremity: Normal inspection, Nontender, Normal color, Normal ROM , Normal temperature, Normal weight bearing. No: Marcos's sign - Neurological Neuro grossly intact: Yes Cognition: Normal Orientation: AAOx4 Rosario Coma Scale Eye Opening: Spontaneous Rosario Coma Scale Verbal: Oriented Rosario Coma Scale Motor: Obeys Commands Rosario Coma Scale Total: 15 Speech: Normal Motor strength normal: LUE, RUE, LLE, RLE Sensory: Normal - Psychological Associated symptoms: Normal affect, Normal mood - Skin Skin Temperature: Warm Skin Moisture: Dry Skin Color: Normal Course - Re-evaluation Re-evalutation: 03/14/18 13:19 Report from EMS blood pressure was transiently low but has returned to normal after fluids. Patient feels fine at this time. Incidental finding of UTI. Treated with Rocephin. Will DC on antibiotics. Encourage close follow-up with her oncologist. 03/14/18 13:[address] Zaman He knows about patient. Will follow as an outpatient. - Vital Signs Vital signs: Temp Pulse Resp BP Pulse Ox 18 127/72 H 96 03/14/18 11:01 03/14/18 11:01 03/14/18 11:01 - Laboratory Result Diagrams: 03/14/18 12:05 03/14/18 12:05 Laboratory results interpreted by me: 03/14/18 03/14/18 03/14/18 11:29 12:05 12:05 RBC 3.40 L Hgb 11.1 L Hct 32.3 L RDW 17.6 H BUN 29 H Est GFR ( Amer) 58 L Est GFR (Non-Af Amer) 48 L Glucose 241 H Total Protein 5.8 L Albumin 3.2 L Urine Protein 30 H Urine Glucose (UA) >=500 H Urine Ketones TRACE H Urine Blood SMALL H Ur Leukocyte Esterase LARGE H Discharge - Discharge Clinical Impression: Dehydration Urinary tract infection Qualifiers: Urinary tract infection type: site unspecified Hematuria presence: without hematuria Qualified Code(s): N39.0 - Urinary tract infection, site not specified Ovarian cancer Qualifiers: Laterality: unspecified laterality Qualified Code(s): C56.9 - Malignant neoplasm of unspecified ovary Condition: Good Disposition: HOME, SELF-CARE Instructions: Dehydration ([facility]), Urinary Tract Infection ([facility]) Prescriptions: Sulfamethoxazole/Trimethoprim [Bactrim Ds Tablet] 1 each PO BID 7 Days #14 tablet
[2018-03-14 11:47] VITALS: BP 127/72
[2018-03-14 11:51] LABS: AMORPHOUS SEDIMENT,URINE TRACE /HPF; APPEARANCE,URINE CLOUDY; BILIRUBIN,URINE NEGATIVE (NEGATIVE); COLOR,URINE YELLOW; GLUCOSE, URINE >=500 mg/dL (NEGATIVE); KETONES,URINE TRACE mg/dL (NEGATIVE); LEUKOCYTE ESTERASE,URINE LARGE (NEGATIVE); NITRITE,URINE NEGATIVE (NEGATIVE); PROTEIN,URINE 30 mg/dL (NEGATIVE); URINE SPECIFIC GRAVITY 1.011; UROBILINOGEN,URINE NEGATIVE mg/dL (<2.0)
[2018-03-14] MEDS ORDERED: CEFTRIAXONE 1 GM/D5W RTU 1 GM/50 ML RTUPB IV ONE (12:25)
[2018-03-14 12:27] LABS: ABSOLUTE BASOPHILS # (AUTO) 0.1 10^3/uL (0.0-0.2); ABSOLUTE LYMPHOCYTES (AUTO) 1.3 10^3/uL (0.5-4.7); ABSOLUTE MONOCYTES (AUTO) 0.8 10^3/uL (0.1-1.4); ABSOLUTE NEUT (AUTO) 7.3 10^3/uL (1.7-8.2); EOSINOPHILS % (AUTO) 0.2 % (0-6); HEMATOCRIT 32.3 % (36.0-47.0); HEMOGLOBIN 11.1 g/dL (12.0-15.5); LYMPHOCYTES % (AUTO) 13.8 % (13-45); MEAN CORPUSCULAR HEMOGLOBIN 32.6 pg (27.0-33.4); MEAN CORPUSCULAR HGB CONC 34.4 g/dL (32.0-36.0); MEAN CORPUSCULAR VOLUME 95 fl (80-97); MONOCYTES % (AUTO) 8.2 % (3-13); PLATELET COUNT 267 10^3/uL (150-450); RED CELL DISTRIBUTION WIDTH 17.6 % (11.5-14.0); SEGMENTED NEUTROPHILS % (AUTO) 76.8 % (42-78); TOTAL CELLS COUNTED % (AUTO) 100 %; WHITE BLOOD COUNT 9.6 10^3/uL (4.0-10.5)
[2018-03-14 12:28] LABS: INTERNATIONAL RATION (INR) 1.06; PARTIAL THROMBOPLASTIN TIME 28.5 SEC (23.5-35.8); PROTHROMBIN TIME 14.3 SEC (11.4-15.4)
[2018-03-14 12:41] LABS: ALANINE AMINOTRANSFERASE 22 U/L (9-52); ALBUMIN 3.2 g/dL (3.5-5.0); ALKALINE PHOSPHATASE 69 U/L (38-126); ANION GAP 10 (5-19); ASPARTATE AMINO TRANSFERASE 14 U/L (14-36); BILIRUBIN,DIRECT 0.3 mg/dL (0.0-0.4); BILIRUBIN,TOTAL 0.6 mg/dL (0.2-1.3); BLOOD UREA NITROGEN 29 mg/dL (7-20); CARBON DIOXIDE 27 mmol/L (22-30); CHLORIDE 103 mmol/L (98-107); GLUCOSE 241 mg/dL (75-110); POTASSIUM 4.2 mmol/L (3.6-5.0); SODIUM 139.7 mmol/L (137-145); TOTAL PROTEIN 5.8 g/dL (6.3-8.2)
[2018-03-14] MEDS ORDERED: CEFTRIAXONE INJ 1000 MG VIAL ONE (12:55)
--- NOTE | 2018-03-14 13:12 | EKG REPORT ---
SEVERITY:- ABNORMAL ECG - SINUS RHYTHM LEFT ATRIAL ABNORMALITY BORDERLINE T ABNORMALITIES, ANT-LAT LEADS : Confirmed by: Kavita Allan MD 14-Mar-2018 13:12:06
== END 2018-03-14 14:30 | disposition home or self-care (01) ==
LOC: ER 10:26
DX: C56.9 Malignant neoplasm of unspecified ovary (principal); N39.0 Urinary tract infection, site not specified; R53.1 Weakness; R42 Dizziness and giddiness; I10 Essential (primary) hypertension; E11.9 Type 2 diabetes mellitus without complications; Z90.710 Acquired absence of both cervix and uterus
CPT/HCPCS: 93005; 36591; 99285; 96365; 96366; 86900; 86901; 36415; 87086; 86850; 85025; 85610; 85730; 87088; 80053; 81001; 84484; 87186; 93010; J7030; J0696

== ENCOUNTER → 2018-04-05 | Outpatient (CLI) | payer MEDICARE ==
--- NOTE | 2018-04-05 09:52 | RADIOLOGY REPORT (SQ) ---
EXAM DESCRIPTION: CT CHEST WITH COMPLETED DATE/TIME: 04/05/2018 9:05 am REASON FOR STUDY: UTERINE CANCER C54.3 MALIGNANT NEOPLASM OF FUNDUS UTERI COMPARISON: 02/04/2018 TECHNIQUE: CT scan of the chest performed using helical scanning technique with dynamic intravenous contrast injection. Images reviewed with lung, soft tissue and bone windows. Reconstructed coronal and sagittal MPR and MIP images reviewed. All images stored on PACS. All CT scanners at this facility use dose modulation, iterative reconstruction, and/or weight based d osing when appropriate to reduce radiation dose to as low as reasonably achievable (ALARA). [facility]: Dose Right [facility]: CareDose [facility]: Dose Right [facility]: Teradose 4D [facility]: [employer] CONTRAST TYPE AND DOSE: 88.5 mL Isovue 370- low osmolar. RENAL FUNCTION: BUN 29, creatinine 1.12 RADIATION DOSE: . LIMITATIONS: None. FINDINGS: LUNGS AND PLEURA: Postsurgical changes are present on the right. Areas of scarring in the right upper lobe and right middle lobe are unchanged. No pulmonary nodules. HILAR AND MEDIASTINAL STRUCTURES: Stable in appearance. Mediastinal cyst is unchanged. HEART AND VASCULAR STRUCTURES: No aneurysm or dissection. No central pulmonary emboli. No pericardi al effusion. HARDWARE: Cdaibr-X-Fzwz remains in place. UPPER ABDOMEN: No significant findings. Limited exam. THYROID AND OTHER SOFT TISSUES: No masses. No adenopathy. BONES: No significant finding. OTHER: No other significant finding. IMPRESSION: Stable CT of the chest. No evidence of metastatic disease. TECHNICAL DOCUMENTATION: JOB ID: [id number] Quality ID # [id number]: Final reports with documentation of one or more dose reduction techniques (e.g., Au tomated exposure control, adjustment of the mA and/or kV according to patient size, use of iterative reconstruction technique) 2010 [employer]- All Rights Reserved Reading location - IP/workstation name: [email or web address]
--- NOTE | 2018-04-05 10:14 | RADIOLOGY REPORT (SQ) ---
EXAM DESCRIPTION: CT ABD/PELVIS WITH IV ONLY COMPLETED DATE/TIME: 04/05/2018 9:05 am REASON FOR STUDY: UTERINE CANCER C54.3 MALIGNANT NEOPLASM OF FUNDUS UTERI COMPARISON: 02/04/2018 TECHNIQUE: CT scan of the abdomen and pelvis performed using helical scanning technique with dynamic intravenous contrast injection. No oral contrast. Images reviewed with lung, soft tissue, and bone windows. Reconstructed coronal and sagittal MPR images reviewed. Delayed images for evaluation of the urinary system also acquired. All images stored on PACS. All CT scanners at this facility use dose modulation, iterative reconstruction, and/or weight based d osing when appropriate to reduce radiation dose to as low as reasonably achievable (ALARA). [facility]: Dose Right [facility]: CareDose [facility]: Dose Right [facility]: Teradose 4D [facility]: [employer] CONTRAST TYPE AND DOSE: contrast/concentration: Isovue 350.00 mg/ml; Total Contrast Delivered: 88.0 ml; Total Saline Delivered: 24.7 ml RENAL FUNCTION: BUN 29, creatinine 1.12 RADIATION DOSE: CT Rad equipment meets quality standard of care and radiation dose reduction techniq ues were employed. CTDIvol: 4.7 - 6.2 mGy. DLP: 1132 mGy-cm.. LIMITATIONS: None. FINDINGS: LOWER CHEST: No significant findings. No nodules or infiltrates. LIVER: Small hepatic lesions are again noted there is an 8.2 mm air decreased attenuation in the mid right lobe. Previously this measured approximately 4 mm. There is a new 7.8 mm lesion in the left l obe. This was not identified on prior CT abdomen and pelvis in metastatic disease is suspected. Thi s was not present on prior PET-CT. SPLEEN: Normal size. No focal lesions. PANCREAS: No masses. No significant calcifications. No adjacent inflammation or peripancreatic fluid collections. Pancreatic duct not dilated. GALLBLADDER: Surgically absent. ADRENAL GLANDS: No significant masses or asymmetry. RIGHT KIDNEY AND URETER: No solid masses. No significant calcifications. No hydronephrosis or hyd roureter. LEFT KIDNEY AND URETER: No solid masses. No significant calcifications. No hydronephrosis or hydr oureter. AORTA AND VESSELS: No aneurysm. No dissection. Renal arteries, SMA, celiac without stenosis. RETROPERITONEUM: No retroperitoneal adenopathy, hemorrhage or masses. BOWEL AND PERITONEAL CAVITY: No masses or inflammatory changes. No free fluid or peritoneal masses. APPENDIX: Normal. PELVIS: No mass. No free fluid. Normal bladder. ABDOMINAL WALL: There is a small umbilical hernia containing omental fat only. BONES: No significant or acute findings. OTHER: No other significant finding. IMPRESSION: 1. New 7.8 mm lesion in the left lobe of liver. Metastatic disease is suspected. There is an enlarging lesion in the posterior mid aspect the right lobe measured at 8.2 mm. Previously th is measured 4 mm in diameter. The hypermetabolic nodule noted on prior PET-CT is faintly visible on today's study. TECHNICAL DOCUMENTATION: JOB ID: [id number] Quality ID # [id number]: Final reports with documentation of one or more dose reduction techniques (e.g., Au tomated exposure control, adjustment of the mA and/or kV according to patient size, use of iterative reconstruction technique) 2010 [employer]- All Rights Reserved Reading location - IP/workstation name: [email or web address]
== END ==
LOC: RAD 08:23
PROVIDERS: ATTEND Internal Medicine
DX: C54.3 Malignant neoplasm of fundus uteri (principal); K76.9 Liver disease, unspecified
CPT/HCPCS: 71260; 74177